=== PATIENT | female | born 1965 | race Caucasian/White ===

== ENCOUNTER 2016-03-25 13:53 | Emergency (ER) | payer OTHER, MEDICARE ==
[~2016-03-25 13:53] MED LIST: ACETAMINOPHEN500 M4 PO; AMMONIUM LACTA385 GM TOP; ARTIFICIAL TEAR1 OIN; ARTIFICIAL TEAR15 M5 OP; ATIVAN0.5 M1 PO; ATIVAN0.5 MG PO; ATORVASTATIN CA20 M1 PO; AUGMENTIN 875-1 EACH PO; AUGMENTIN 875875 MG PO; CALCIUM + D 6001 TAB PO; CALCIUM CARBON600 MG PO; CEPHALEXIN500 M3 PO; DEPAKOTE ER 25250 MG PO; DEPAKOTE ER500 M1 PO; DIVALPROEX SOD500 M2 PO; DIVALPROEX SOD500 M3 PO; DULCOLAX5 MG; FLORINEF ACETA0.1 MG; FLORINEF ACETA0.1 MG PO; FLUDROCORTISON0.1 M1 PO; FOSAMAX 70MG70 MG; FOSAMAX70 M1 PO; HYDROCORTISONE5 M1 PO; Hydrocortisone PO; KETOCONAZOLE15 GM TOP; LORAZEPAM1 M1 PO; LOVENOX 4040 MG/0.4 SC; MIRALAX17 GM PO; MUCINEX600 M1 PO; MUCINEX600 MG; PEPCID20 M1 PO; PEPCID40 MG; PERCOCET 500 MG1 TAB PO; SENOKOT8.6 M2 PO; SENOKOT8.6 MG; SINGULAIR10 M1 PO; SINGULAIR10 MG; TRIAMCINOLONE A15 G3 TOP; TYLENOL TAB 32325 MG PO; TYLENOL WITH C1 EACH PO; TYLENOL325 M1 PO; TYLENOL325 MG; ULTRAM50 M1 PO; VITAMIN D1000 IU; VITAMIN D1000 UNIT PO; ZOFRAN ODT4 M1 PO
--- NOTE | 2016-03-25 14:14 | ED NECK/BACK PAIN COMPLAINT ---
History of Present Illness General Chief Complaint: Low Back Pain/Injury Stated Complaint: BIBA FROM [facility] FOR BACK PAIN Source: patient Exam Limitations: patient nonverbal at baseline. Vital Signs & Intake/Output Vital Signs & Intake/Output Vital Signs Date Time Temp Pulse Resp B/P Pulse O2 O2 Flow FiO2 Ox Delivery Rate 03/25 1723 97.0 89 16 144/89 98 Room Air 03/25 1400 98.0 87 12 131/86 96 Room Air Allergies Coded Allergies: NO KNOWN ALLERGIES (06/28/15) Triage Nurses Notes Reviewed? yes HPI: Patient is a 50-year-old female brought in by ambulance for evaluation of increasing back pain. Patient is nonverbal at baseline, resides in an extended care facility. Per the extended care facility patient has been refusing to walk for the past 2 days, not able to sit in her wheel chair and leaning to one side or the other. Patient reportedly not willing to lay on her back. Patient is unable to describe her pain, does not nod or acknowledge questions on my exam. No reported recent trauma. (VIKKI ALCARAZ,ARIELLE) Reconcile Medications Acetaminophen (Tylenol) 325 MG TABLET 1 TAB PO Q4-6 PRN PRN PAIN SCALE 1-3 ( MILD) (Reported) Acetaminophen 650 MG SUPP.RECT 1 SUPP MI Q4 HRS NEEDED PRN FEVER > 101 ( Reported) Alendronate Sodium (Fosamax) 70 MG TABLET 1 TAB PO QSAT OSTEOPOROSIS ( Reported) in the morning, at least 30 minutes before the first food, beverage, or medication of the day Atorvastatin Calcium 20 MG TABLET 1 TAB PO QPM HIGH CHOLESTROL (Reported) Calcium Carbonate 600 MG TABLET 2 TAB PO QPM SUPPLEMENT (Reported) Cholecalciferol (Vitamin D3) (Vitamin D) 1,000 UNIT TABLET 1 TAB PO DAILY SUPPLEMENT (Reported) Divalproex Sodium (Depakote Sprinkle) 125 MG CAP.SPRINK 4 CAP PO 8AM SEIZURES (Reported) Divalproex Sodium (Depakote) 125 MG TABLET.DR 8 CAP PO 8PM SEIZURES (Reported ) Famotidine (Pepcid) 20 MG TABLET 1 TAB PO DAILY HEARTBURN (Reported) Fludrocortisone Acetate 0.1 MG TABLET 1 TAB PO EOD IDOPATHIC ORTHOSTATIC HTN (Reported) Guaifenesin (Mucinex) 600 MG TAB.ER.12H 1 TAB PO BID PRN Cough, sputum ( Reported) Hydrocodone/Acetaminophen (Hydrocodon-Acetaminophen 5-325) 5 MG-325 MG TABLET 1 TAB PO Q8P PRN PAIN SCALE 4-6 (MODERATE) (Reported) Hydrocortisone 5 MG TABLET 3 TAB PO QAM HYPOALDOSTRONISM (Reported) Reason to Stop at ADM: change to IV Hydrocortisone 5 MG TABLET 1 TAB PO QPM HYPOALDOSTRONISM (Reported) Reason to Stop at ADM: change to IV Lorazepam (Ativan) 0.5 MG TABLET 1 TAB PO QAM anxiety (Reported) Reason to Stop at ADM: respiratory distress Lorazepam (Ativan) 0.5 MG TABLET 2 TAB PO QPM anxiety (Reported) Reason to Stop at ADM: respiratory distress Montelukast Sodium (Singulair) 10 MG TABLET 1 TAB PO DAILY ASTHMA (Reported) Sennosides/Docusate Sodium (Senna S Tablet) 8.6 MG-50 MG TABLET 2 TAB PO QPM STOOL (Reported) (FABIANO MITCHELL,BARRIE) Past History Medical History Any Pertinent Medical History? 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 No (ARIELLE BELTRAN) Review of Systems Review of Systems Constitutional: Reports: malaise. Denies: chills, fever. Eyes: Reports: no symptoms. Ears, Nose, Throat, Mouth: Reports: no symptoms. Respiratory: Reports: cough. Cardiovascular: Denies: chest pain, syncope. Gastrointestinal/Abdominal: Denies: diarrhea, vomiting. Musculoskeletal: Reports: see HPI. Skin: Reports: no symptoms. Neurological/Psychological: Denies: unable to move lower ext, unable to move upper ext. (ARIELLE BELTRAN) Physical Exam Physical Exam General Appearance: alert, awake Head: atraumatic, normal appearance Eyes: Bilateral: normal appearance, PERRL, EOMI. Ears, Nose, Throat, Mouth: moist mucous membrane Neck: normal inspection, supple, full range of motion, no midline tenderness Respiratory: normal breath sounds, no respiratory distress, lungs clear Cardiovascular: regular rate/rhythm Peripheral Pulses: 2+ dorsalis pedis (R), 2+ dorsalis pedis (L) Gastrointestinal: soft, non-tender, NO PALPABLE MASSES Back: normal inspection, normal range of motion, no vertebral tenderness Straight Leg Raising: Right: Negative. Left: Negative. DTR: Patellar: 1: L4 Left. 2: L4 Right. Neurologic/Psych: awake, alert (VIKKI ALCARAZ,ARIELLE) Progress Differential Diagnosis: AAA, cauda equina syn, herniated disc, myofascial strain , pyelo/UTI, sciatica, T/L spine injury, ureterolithiasis, pneumonia, sepsis Plan of Care: Orders Procedure Date/time Status URINALYSIS 03/25 1428 Complete COMPREHENSIVE METABOLIC PANEL 03/25 1428 Complete CBC WITHOUT DIFFERENTIAL 03/25 1428 Complete Laboratory Tests 03/25/16 1455: Anion Gap 8, Estimated GFR > 60, BUN/Creatinine Ratio 23.8, Glucose 72, Calcium 8.7, Total Bilirubin 0.3, AST 20, ALT 12, Alkaline Phosphatase 62, Total Protein 6.8, Albumin 2.9 L, Globulin 3.9, Albumin/Globulin Ratio 0.7 L, CBC w Diff NO MAN DIFF REQ, RBC 3.91 L, MCV 101.7 H, MCH 34.0 H, RDW 17.4 H, MPV 8.6, Gran % 75.4 H, Lymphocytes % 13.2 L, Monocytes % 11.2 H, Eosinophils % 0, Basophils % 0.2, Absolute Granulocytes 4.9, Absolute Lymphocytes 0.9 L, Absolute Monocytes 0.7 H, Absolute Eosinophils 0, Absolute Basophils 0, PUBS MCHC 33.4, Urine Color YEL, Urine Clarity CLEAR, Urine pH 7.0, Ur Specific [place] 1.010, Urine Protein NEG, Urine Ketones NEG, Urine Nitrite NEG, Urine Bilirubin NEG, Urine Urobilinogen 0.2, Ur Leukocyte Esterase NEG, Ur Microscopic EXAM NOT REQUIRED, Urine Hemoglobin NEG, Urine Glucose NEG No signs of pain or discomfort with straight leg raise, palpation of patient's back, or rolling patient. Results discussed with patient's power of defense attorney. She reports that patient has been in significant pain and requesting a change in the patient's pain medication regimen. 1700: Discussed with Dr. Perla(covering patient at [facility]): can place patient on Vicodin and discharge back to [facility]. (ARIELLE BELTRAN) Diagnostic Imaging: Viewed by Me: Radiology Read, CT Scan. Discussed w/RAD: Radiology Read, CT Scan. Radiology Impression: PATIENT: MADDIE JANSEN PRESENT AGE: 50 PATIENT ACCOUNT NO: [id number] : 63 LOCATION: [facility] ORDERING PHYSICIAN: ARIELLE ALCARAZ SERVICE DATE: 03/25/16 EXAM TYPE: RAD - XRY-PORTABLE CHEST XRAY EXAMINATION: XR PORTABLE CHEST CLINICAL INFORMATION: Productive cough. COMPARISON: Portable chest x-ray 09/20/2015. TECHNIQUE: Portable view of the chest was obtained. FINDINGS: There is fairly diffuse increase in interstitial markings which is increased left side greater than right compared with the previous examination and may represent an evolving atypical or viral type pneumonia. No areas of focal consolidation are seen. Cardiomediastinal silhouette and osseous structures unremarkable. IMPRESSION: Mild diffuse interstitial prominence. DICTATED BY: ANA ROSA BAIRD MD DATE/TIME DICTATED:03/25/161549 LEAD MILITARY ANALYST:ANAHI DATE/TIME TRANSCRIBED:1549 CONFIDENTIAL, DO NOT COPY WITHOUT APPROPRIATE AUTHORIZATION. < Electronically signed in Other Vendor System> SIGNED BY: ANA ROSA BAIRD MD 03/25/161555 (ARIELLE BELTRAN) Departure Departure Disposition: ACUTE REHAB FACILITY Condition: Stable Clinical Impression Primary Impression: Protruded lumbar disc Referrals: PAU MITCHELL,MAXIMILIAN Olsen (PCP/Family) Departure Forms: Customer Survey General Discharge Information (ARIELLE BELTRAN) PA/TRAINING CONSULTANT Co-Sign Statement Statement: ED Attending supervision documentation- [] I saw and evaluated the patient. I have also reviewed all the pertinent lab results and diagnostic results. I agree with the findings and the plan of care as documented in the PA's/TRAINING CONSULTANT's documentation. [X] I have reviewed the ED Record and agree with the PA's/TRAINING CONSULTANT's documentation. [] Additions or exceptions (if any) to the PAs/TRAINING CONSULTANT's note and plan are summarized below: [] (FABIANO MITCHELL,BARRIE)
[2016-03-25] MEDS ORDERED: DEPAKOTE SPRIN125 M1 PO (14:59)
[2016-03-25] MEDS ORDERED: DEPAKOTE125 M1 PO (14:59)
[2016-03-25] MEDS ORDERED: SENNA S TABLET1 EACH PO (15:01)
[2016-03-25 15:19] LABS: ABSOLUTE BASOPHIL COUNT 0 /CUMM (0.0-0.2); ABSOLUTE EOSINOPHIL COUNT 0 /CUMM (0.0-0.7); ABSOLUTE GRANULOCYTE CT 4.9 /CUMM (1.4-6.5); ABSOLUTE LYMPH COUNT 0.9 /CUMM (1.2-3.4); ABSOLUTE MONOCYTE COUNT 0.7 /CUMM (0.10-0.60); BASOPHIL % 0.2 % (0.0-2.0); EOSINOPHIL % 0 % (0-5); GRANULOCYTE % 75.4 % (42.2-75.2); HEMATOCRIT 39.8 % (37-47); MEAN CORPUSCULAR HGB CONC 33.4 G/DL (33.0-37.0); MEAN CORPUSCULAR VOLUME 101.7 FL (81.0-99.0); MEAN PLATELET VOLUME 8.6 FL (7.4-10.4); PLATELET COUNT 248 /CUMM (130-400); RBC DISTRIBUTION WIDTH 17.4 % (11.5-14.5); RED BLOOD CELL CT 3.91 /CUMM (4.20-5.40); WHITE BLOOD CELL COUNT 6.6 /CUMM (4.8-10.8)
--- NOTE | 2016-03-25 15:56 | RADIOLOGY REPORT ---
EXAMINATION: XR PORTABLE CHEST CLINICAL INFORMATION: Productive cough. COMPARISON: Portable chest x-ray 09/20/2015. TECHNIQUE: Portable view of the chest was obtained. FINDINGS: There is fairly diffuse increase in interstitial markings which is increased left side greater than right compared with the previous examination and may represent an evolving atypical or viral type pneumonia. No areas of focal consolidation are seen. Cardiomediastinal silhouette and osseous structures unremarkable. IMPRESSION: Mild diffuse interstitial prominence.
--- NOTE | 2016-03-25 16:50 | CT SCAN REPORT ---
EXAMINATION: CT LUMBAR SPINE WITHOUT CONTRAST CLINICAL INFORMATION: Severe low back pain. Assess for compression fracture. COMPARISON: CT scan 12/04/2015. TECHNIQUE: Helical non-contrast CT images were obtained through the lumbar spine and 1.25 and 2.5 mm axial reconstructions were reviewed along with sagittal and coronal MPRs. DLP: 225.18 mGy-cm FINDINGS: There is a stable rotatory levoscoliosis. Intervertebral disc height is narrowed in the concavity of the scoliosis at L2-L3 with lateral osteophytes. Vertebral body heights are maintained and there are no compression fractures. Bone mineralization appears normal. The visualized retroperitoneal and pelvic structures are unremarkable. There are degenerative changes of the sacroiliac joints most severe on the right. SPINAL LEVELS: T12-L1: The disc configuration is normal. The central canal and neural foramina are widely patent. The facet joints are normal. L1-L2: There is callus from the healing fracture of the right L2 transverse process. There is mild bilateral facet arthropathy. Posterior disc contour appears normal. There is no central stenosis. L2-L3: There is mild bilateral facet arthropathy. There is a broad-based posterior disc protrusion, which is more prominent on the left and extends far laterally with impingement on the exiting left L2 nerve root. A smaller protrusion is seen on the right. There is no central stenosis. The findings appear stable. L3-L4: There is mild bilateral facet arthropathy and ligamenta flava hypertrophy. There is a diffuse disc bulge extending into the inferior neural foramina bilaterally. This is more prominent on the left, and has a similar configuration compared to the prior study and there may be impingement on the exiting left L3 nerve root. There is no central stenosis. L4-L5: There is moderate bilateral facet arthropathy with ligamenta flava hypertrophy. There is a broad-based posterior disc protrusion extending into the right greater than left neural foramina, with impingement on the exiting right L4 nerve root. There is no central stenosis. L5-S1: There is moderate bilateral facet arthropathy. There is a broad-based posterior disc protrusion, extending into the inferior neural foramina. There is no central stenosis. IMPRESSION: 1. There are no acute compression fractures or new subluxations. 2. The study redemonstrates the callus formation around the healing fracture of the transverse process of L2 on the right. 3. There is a stable far lateral disc protrusion on the left at L2-L3, impinging on the extraforaminal left L2 nerve root. 4. There is a broad-based posterior disc protrusion at L3-L4, more prominent on the left. 5. There is a broad-based posterior disc protrusion at L4-L5 extending into the neural foramina bilaterally, more prominent on the right.
[2016-03-25 17:23] VITALS: BP 144/89
== END 2016-03-25 18:33 ==
LOC: ERH 13:53
PROVIDERS: Physician Assistant
DX: M51.26 Other intervertebral disc displacement, lumbar region (principal)
CPT/HCPCS: 81003

== ENCOUNTER 2016-03-28 08:58 | Inpatient (IN) | payer OTHER, MEDICARE ==
[~2016-03-28] VITALS: Ht 137.2 cm; Wt 46.7 kg
[~2016-03-28 08:58] MED LIST changes: +DEPAKOTE SPRIN125 M1 PO; +DEPAKOTE125 M1 PO; +SENNA S TABLET1 EACH PO
--- NOTE | 2016-03-28 09:02 | ED GENERAL ADULT ---
History of Present Illness General Chief Complaint: Fever Stated Complaint: FEVER AND LETHARGY Vital Signs & Intake/Output Vital Signs & Intake/Output Vital Signs Date Time Temp Pulse Resp B/P Pulse O2 O2 Flow FiO2 Ox Delivery Rate 03/28 0901 99.0 111 20 80/50 95 Nasal 2.0L Cannula Allergies Coded Allergies: NO KNOWN ALLERGIES (06/28/15) Reconcile Medications Acetaminophen (Tylenol) 325 MG TABLET 1 TAB PO Q4-6 PRN PRN PAIN SCALE 1-3 ( MILD) (Reported) Alendronate Sodium (Fosamax) 70 MG TABLET 1 TAB PO QSAT OSTEOPOROSIS ( Reported) in the morning, at least 30 minutes before the first food, beverage, or medication of the day Atorvastatin Calcium 20 MG TABLET 1 TAB PO QPM HIGH CHOLESTROL (Reported) Calcium Carbonate 600 MG TABLET 2 TAB PO QPM SUPPLEMENT (Reported) Cholecalciferol (Vitamin D3) (Vitamin D) 1,000 UNIT TABLET 1 TAB PO DAILY SUPPLEMENT (Reported) Divalproex Sodium (Depakote Sprinkle) 125 MG CAP.SPRINK 4 CAP PO DAILY SEIZURES (Reported) Divalproex Sodium (Depakote) 125 MG TABLET.DR 8 CAP PO QPM SEIZURES (Reported ) Famotidine (Pepcid) 20 MG TABLET 1 TAB PO DAILY HEARTBURN (Reported) Fludrocortisone Acetate 0.1 MG TABLET 1 TAB PO EOD IDOPATHIC ORTHOSTATIC HTN (Reported) Guaifenesin (Mucinex) 600 MG TAB.ER.12H 1 TAB PO BID PRN CONGESTION (Reported ) Hydrocortisone 5 MG TABLET 3 TAB PO QAM HYPOALDOSTRONISM (Reported) Hydrocortisone 5 MG TABLET 1 TAB PO QPM HYPOALDOSTRONISM (Reported) Lorazepam (Ativan) 0.5 MG TABLET 1 TAB PO QAM anxiety (Reported) Lorazepam (Ativan) 0.5 MG TABLET 2 TAB PO QPM anxiety (Reported) Montelukast Sodium (Singulair) 10 MG TABLET 1 TAB PO DAILY ASTHMA (Reported) Sennosides (Senokot) 8.6 MG TABLET 1 TAB PO DAILY STOOL SOFTENER (Reported) Sennosides/Docusate Sodium (Senna S Tablet) 8.6 MG-50 MG TABLET 2 TAB PO QPM STOOL (Reported) Tramadol HCl (Ultram) 50 MG TABLET 1 TAB PO BID PRN PAIN (Reported) Tylenol With Codeine (Tylenol With Codeine #3 Tablet) 300 MG-30 MG TABLET 1 TAB PO Q6-8P PRN PAIN SCALE 4-6 (MODERATE) (Reported) Past History Travel History Traveled to [place] past 21 day No Medical History Neurological: THEE EVANS EENT: cataracts, NON-VERBAL AT BASELINE Y Cardiovascular: MITRAL VALVE PROLAPSE HYPOTENSION Respiratory: NONE Gastrointestinal: NO TEETH Hepatic: NONE Renal: urinary incontinence Musculoskeletal: osteoarthritis, osteoporosis, ?L1-L5 INJURY Psychiatric: NONE Endocrine: NONE Blood Disorders: anemia Cancer(s): NONE 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
--- NOTE | 2016-03-28 09:05 | ED DYSPNEA/ASTHMA COMPLAINT ---
History of Present Illness General Chief Complaint: Fever Stated Complaint: FEVER AND LETHARGY Source: old records, EMS Exam Limitations: physical impairment Allergies Coded Allergies: NO KNOWN ALLERGIES (06/28/15) Reconcile Medications Acetaminophen (Tylenol) 325 MG TABLET 1 TAB PO Q4-6 PRN PRN PAIN SCALE 1-3 ( MILD) (Reported) Acetaminophen 650 MG SUPP.RECT 1 SUPP NE Q4 HRS NEEDED PRN FEVER > 101 ( Reported) Alendronate Sodium (Fosamax) 70 MG TABLET 1 TAB PO QSAT OSTEOPOROSIS ( Reported) in the morning, at least 30 minutes before the first food, beverage, or medication of the day Atorvastatin Calcium 20 MG TABLET 1 TAB PO QPM HIGH CHOLESTROL (Reported) Calcium Carbonate 600 MG TABLET 2 TAB PO QPM SUPPLEMENT (Reported) Cholecalciferol (Vitamin D3) (Vitamin D) 1,000 UNIT TABLET 1 TAB PO DAILY SUPPLEMENT (Reported) Divalproex Sodium (Depakote Sprinkle) 125 MG CAP.SPRINK 4 CAP PO DAILY SEIZURES (Reported) Divalproex Sodium (Depakote) 125 MG TABLET.DR 8 CAP PO QPM SEIZURES (Reported ) Famotidine (Pepcid) 20 MG TABLET 1 TAB PO DAILY HEARTBURN (Reported) Fludrocortisone Acetate 0.1 MG TABLET 1 TAB PO EOD IDOPATHIC ORTHOSTATIC HTN (Reported) Guaifenesin (Mucinex) 600 MG TAB.ER.12H 1 TAB PO BID PRN CONGESTION (Reported ) Hydrocodone/Acetaminophen (Hydrocodon-Acetaminophen 5-325) 5 MG-325 MG TABLET 1 TAB PO Q8P PRN PAIN (Reported) Hydrocortisone 5 MG TABLET 3 TAB PO QAM HYPOALDOSTRONISM (Reported) Hydrocortisone 5 MG TABLET 1 TAB PO QPM HYPOALDOSTRONISM (Reported) Lorazepam (Ativan) 0.5 MG TABLET 1 TAB PO QAM anxiety (Reported) Lorazepam (Ativan) 0.5 MG TABLET 2 TAB PO QPM anxiety (Reported) Montelukast Sodium (Singulair) 10 MG TABLET 1 TAB PO DAILY ASTHMA (Reported) Sennosides/Docusate Sodium (Senna S Tablet) 8.6 MG-50 MG TABLET 2 TAB PO QPM STOOL (Reported) Triage Nurses Notes Reviewed? yes Onset: Gradual Duration: getting worse Timing: recent history Severity: severe Activities at Onset: none HPI: Patient is a 50-year-old female with past medical history significant for Down syndrome, seizure disorder, severe developmental disability, impulse control disorder, adrenal insufficiency, hyponatremia hypoaldosteronism, and chronic back pain due to severe spinal stenosis who was recently admitted approximately 5 weeks ago for metabolic encephalopathy with underlying UTI infection who presents emergency room brought in from [facility] for concerns of hypoxia, pulse oxygen was noted to be 88% room air patient was given 2 L noted to have improvement of 92%. Patient has concerns of febrile temperature noted 103 this a.m. increased lethargy however nonverbal his chronic. Patient has decreased by mouth intake dictated by W 10. Patient has green phlegm noted by staff at [facility]. Patient was evaluated 4 days ago [place] emergency room for concerns of chronic back pain which she was administered Vicodin for symptoms. Tylenol suppository was administered 650 mg prior to arrival with no improvement of fever History is limited due to patient's past medical history. (ANTHONY ALCARAZ,VIKAS) Vital Signs & Intake/Output Vital Signs & Intake/Output Vital Signs Date Time Temp Pulse Resp B/P Pulse O2 O2 Flow FiO2 Ox Delivery Rate 03/28 1415 86 18 92/50 92 Nasal 2.0L Cannula 03/28 1309 97.7 84 20 90/50 98 Nasal 2.0L Cannula 03/28 1211 97.9 95 20 92/55 92 Nasal 2.0L Cannula 03/28 1114 102 20 92/58 98 Nasal 2.0L Cannula 03/28 1034 100.6 100 20 80/50 96 Nasal 2.0L Cannula 03/28 1020 102 20 83/46 98 Nasal 2.0L Cannula 03/28 1000 98 Nasal 2.0L Cannula 03/28 0948 105 20 85/60 98 Nasal 2.0L Cannula 03/28 0930 103.4 03/28 0901 103.4 111 20 80/50 95 Nasal 2.0L Cannula Past History Travel History Traveled to [place] past 21 day No Medical History Any Pertinent Medical History? 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: MITRAL VALVE PROLAPSE HYPOTENSION Respiratory: NONE Gastrointestinal: NO TEETH Hepatic: NONE Renal: urinary incontinence Musculoskeletal: osteoarthritis, osteoporosis, ?L1-L5 INJURY Psychiatric: NONE Endocrine: NONE Blood Disorders: anemia Cancer(s): NONE ANIMAL SKINNER/Reproductive: NONE History of MRSA: No History of VRE: No History of CDIFF: No Surgical History Surgical History: non-contributory Psychosocial History Who do you live with Family Services at Home Home Health Aide What is your primary language Qatari Tobacco Use: Never used ETOH Use: denies use Illicit Drug Use: denies illicit drug use Family History Family History, If Any: Relation not specified for: Family history unobtainable Hx Contributory? No (VIAKS PANIAGUA) Review of Systems Review of Systems Constitutional: Reports: see HPI, chills, fever, malaise. EENTM: Reports: see HPI, nasal congestion. Respiratory: Reports: see HPI, cough, short of breath. Cardiovascular: Reports: no symptoms. GI: Reports: no symptoms. Genitourinary: Reports: no symptoms. Musculoskeletal: Reports: see HPI. Skin: Reports: no symptoms. Neurological/Psychological: Reports: no symptoms. Hematologic/Endocrine: Reports: no symptoms. Immunologic/Allergic: Reports: no symptoms. All Other Systems: Reviewed and Negative (VIKAS PANIAGUA) Physical Exam Physical Exam General Appearance: no apparent distress, comfortable Respiratory: chest non-tender, rhonchi, nO RESPIRATORY DISTRESS Comments: HEENT: Normal EENT exam, extraocular motion intact, no nystagmus. Pupils equally round and reactive to light and accommodation. Nose is atraumatic. External auditory canal and Tympanic membranes clear. Pharynx normal. No swelling or edema. Neck: Supple, no lymphadenopathy, normal range of motion without pain or tenderness Back: , no CVA tenderness. Cardiovascular: Regular rate and rhythms no murmurs rubs or gallops, normal JVP Abdomen: Soft, nontender nondistended, no appreciable organomegaly. Normal bowel sounds. No ascites Extremity: No edema, no calf tenderness to palpation, normal and equal pulses. Neuro: Alert, motor sensory normal, Skin: No appreciable rash on exposed skin, skin is warm and dry. Psych: Mood and affect is normal, memory and judgment is normal. Core Measures ACS in differential dx? Yes Severe Sepsis Present: Yes BC x2: Yes Lactic Acid x2: Yes IV ABX Broad Spectrum: Yes NS/LR Started: Yes Septic Shock Present: Yes BC x2: Yes Lactic Acid: Yes IV ABX Broad Spectrum: Yes Focused Exam Completed: Yes NS/LR 30ml/kg w/in 3hrs: Yes IV Vasopressors started: No (VIKAS PANIAGUA) Progress Differential Diagnosis: asthma, AMI, bronchitis, costochondritis, CHF, COPD, musculoskeletal pain, pericarditis, pulmonary embolism, pneumonia, pneumothorax, rib fracture, unstable angina Diagnostic Imaging: Viewed by Me: Radiology Read. Radiology Impression: acute abnormality Initial ED EKG: normal intervals, normal p-waves, normal sinus rhythm, SINUS RHYTHM NOTED 100 BPM Prior EKG: unchanged Comments: PATIENT: MADDIE JANSEN PRESENT AGE: 50 PATIENT ACCOUNT NO: [id number] : 63 LOCATION: [facility] ORDERING PHYSICIAN: VIKAS ALCARAZ SERVICE DATE: 03/28/16 EXAM TYPE: RAD - XRY-PORTABLE CHEST XRAY EXAMINATION: XR PORTABLE CHEST CLINICAL INFORMATION: Fever, evaluate for pneumonia. COMPARISON: 07/05/2013, 03/25/2016. TECHNIQUE: Single AP erect 80 degree portable view. FINDINGS: There is a developing patchy opacity obscuring the right heart border in the right costophrenic angle concerning for developing infiltrate versus atelectasis. Patchy opacity overlying the heart also appears slightly more prominent. Interstitial prominence appears unchanged. There are old healed right-sided rib fractures. Cardiomediastinal silhouette appears unchanged. IMPRESSION: Findings suggesting developing lower lobe infiltrate most convincing on the right. Continued follow-up is recommended. (ANTHONY ALCARAZ,VIKAS) Plan of Care: Orders Procedure Date/time Status CBC WITHOUT DIFFERENTIAL 03/29 06 Active BASIC ELECTROLYTES PLUS BUN&CR 03/29 06 Active Heart Healthy Diet 03/28 D Active Change service to 03/28 1434 Active Pathway - chart 03/28 1433 Active Patient Data 03/28 1355 Active Admit to inpatient 03/28 1335 Active Code Status 03/28 1330 Active Pathway - chart 03/28 1326 Active House Staff 03/28 1326 Active LOWER RESPIRATORY CULTURE 03/28 0933 Active VIRAL CULTURE 03/28 929 Active Straight Cath 03/28 927 Active RAPID VIRAL INFLUENZA A 03/28 926 Complete CULTURE,URINE 03/28 926 Active BLOOD CULTURE 03/28 926 Active URINALYSIS 03/28 926 Complete TROPONIN LEVEL 03/28 926 Complete LACTIC ACID 03/28 926 Complete COMPREHENSIVE METABOLIC PANEL 03/28 926 Complete CBC WITHOUT DIFFERENTIAL 03/28 926 Complete EKG 03/28 926 Active VTE Mechanical Prophylaxis 03/28 UNK Active Vital Signs 03/28 UNK Active Intake & Output 03/28 UNK Active Current Medications Sig/Keerthi Start time Last Medication Dose Stop Time Status Admin Oseltamivir Phosphate 75 MG BID 03/28 1515 AC (Tamiflu 75MG) 04/01 2201 Acetaminophen 650 MG Q6P PRN 03/28 1445 AC (Tylenol) Azithromycin 500 MG ONCE ONE 03/28 929 CAN (Zithromax) 03/28 1029 Dextrose/Water 250 ML (D5W) Ceftriaxone Sodium 1,000 MG ONCE ONE 03/28 929 CAN (Rocephin) 03/28 0931 Laboratory Tests 03/28/16 1227: Lactic Acid Cancelled 03/28/16929: Anion Gap 6, Estimated GFR > 60, BUN/Creatinine Ratio 26.7 H, Glucose 68, Lactic Acid 1.3, Calcium 7.3 L, Total Bilirubin 0.4, AST 24, ALT 24, Alkaline Phosphatase 43, Troponin I < 0.01, Total Protein 5.5 L, Albumin 2.3 L, Globulin 3.2, Albumin/Globulin Ratio 0.7 L, CBC w Diff NO MAN DIFF REQ, RBC 3.65 L, MCV 102.7 H, MCH 34.1 H, RDW 18.0 H, MPV 9.5, Gran % 68.7, Lymphocytes % 17.6 L, Monocytes % 13.2 H, Eosinophils % 0.1, Basophils % 0.4, Absolute Granulocytes 3.0, Absolute Lymphocytes 0.8 L, Absolute Monocytes 0.6, Absolute Eosinophils 0, Absolute Basophils 0, PUBS MCHC 33.2, Virus Culture Pending, Urinalysis MOD H, Urine Color YEL, Urine Clarity HAZY H, Urine pH 6.0 , Ur Specific [place] 1.025, Urine Protein >=300 H, Urine Ketones TRACE H, Urine Nitrite POS H, Urine Bilirubin NEG, Urine Urobilinogen 0.2, Ur Leukocyte Esterase MOD H, Ur Microscopic SEDIMENT EXAMINED, Urine RBC 15-25 H, Urine WBC PACKD H, Ur Epithelial Cells RARE, Urine Mucus FEW, Urine Hemoglobin LARGE H, Urine Glucose NEG Microbiology 03/28 939 BLOOD: Blood Culture - RECD 03/28 932 LOWER RESP: Respiratory Culture - ORD 03/28 932 LOWER RESP: Gram Stain - ORD 03/28 929 BLOOD: Blood Culture - RECD 03/28 926 URINE ROUT: Urine Culture - ORD Patient on an episode exam due to significant fevers and rhonchi and hypotension will be treated for concerns of septic shock. 2 IV peripheral access points were administered in which patient is receiving IV fluid resuscitation. Patient will be given prophylactic antibiotics for concerns of pneumonia Patient had chest x-ray findings of pneumonia patient will be treated for hospital acquired pneumonia and patient had positive influenza and patient will be put on droplet precautions. Patient did have improvement of hypotension prior to her admission Patient was given 3 L of supplemental oxygen and noted to be in no respirator distress at 95% room air Patient had no concerns of pressure ulcer on detailed skin exam Patient had improvement of blood pressure with IV fluid resuscitation patient will be admitted under hospitalist and which they accepted patient. (VIKAS PANIAGUA) Departure Departure Disposition: STILL A PATIENT Condition: Stable Clinical Impression Primary Impression: Sepsis Secondary Impressions: Hypoxia, Influenza, Pneumonia Referrals: PAU MITCHELL,MAXIMILIAN Olsen Departure Forms: Customer Survey General Discharge Information Admission Note Spoke With: YOLANDA MITCHELL,CHARLENE Marroquin Documentation of Exam: Documentation of any treatments & extenuating circumstances including Concerns Regarding Discharge (functional status, medication knowledge or non-compliance, living conditions, etc.) that warrant an admission rather than observation: [ Discussed patient with Dr. GORMAN who agrees to [facility] admission for concerns of sepsis and etiology of pneumonia. Patient was IV fluid resuscitation, IV antibiotics, and droplet precautions. Outpatient treatment at this time due to critical findings of septic shock initially in the emergency room would be medically harmful] (VIKAS PANIAGUA) PA/[employer]PM DEVELOPER Co-Sign Statement Statement: ED Attending supervision documentation- [X] I saw and evaluated the patient. I have also reviewed all the pertinent lab results and diagnostic results. I agree with the findings and the plan of care as documented in the PA's/[employer] DEVELOPER's documentation. [] I have reviewed the ED Record and agree with the PA's/[employer] DEVELOPER's documentation. [] Additions or exceptions (if any) to the PAs/[employer] DEVELOPER's note and plan are summarized below: [] (BRYN MITCHELL,HAILEY Posey) Critical Care Note Critical Care Note Critical Care Time: 30-74 min (VIKAS PANIAGUA)
--- NOTE | 2016-03-28 09:15 | NUR ---
STRAIGHT CATHED FOR ONLY 20ML CLOUDY YELLOW URINE, ONLY CLEAR TUBE OBTAINED.
--- NOTE | 2016-03-28 09:27 | NUR ---
PT BIBA FROM [facility] FOR LOW O2 SAT, FEVER, AND LETHARGY. PER EMS PT HAD A TEMP OF 103.4 AT [facility] AT 730 A AND WAS GIVEN SUPP TYELNOL. PT SEEN IN ER MONDAY FOR BACK PAIN AND CT SCAN. PT PLACED ON VICODIN AND SENT BACK TO FACILITY. TODAY PT ARRIVES IN ED LETHARGIC AND WITH A RECTAL TEMP OF 103.4. PT HYPOTENSIVE ON ARRRIVAL WITH BP IN THE 80S. PT O2 SAT 90% ON RA. PT HAS AN AUDIBLE COUGH AND BRINGS UP GREEN PHLEGM FROM MOUTH. PER EMS FACILTY ALSO STATES PT IS NOT EATING WELL PT PLACED ON 2L OF O2 VIA NC WITH SAT IMPROVING TO 97%
--- NOTE | 2016-03-28 09:30 | NUR ---
LABS, URINE, 1ST SET BC SENT.
--- NOTE | 2016-03-28 09:30 | NUR ---
FLU SWAB SENT.
--- NOTE | 2016-03-28 09:45 | NUR ---
PORT CXR DONE.
[2016-03-28] MEDS ORDERED: ACETAMINOPHEN650 M5 PR (09:48)
[2016-03-28] MEDS ORDERED: HYDROCODON-ACE1 EAC2 PO (09:52)
[2016-03-28 10:02] LABS: ABSOLUTE BASOPHIL COUNT 0 /CUMM (0.0-0.2); ABSOLUTE EOSINOPHIL COUNT 0 /CUMM (0.0-0.7); ABSOLUTE LYMPH COUNT 0.8 /CUMM (1.2-3.4); ABSOLUTE MONOCYTE COUNT 0.6 /CUMM (0.10-0.60); BASOPHIL % 0.4 % (0.0-2.0); EOSINOPHIL % 0.1 % (0-5); GRANULOCYTE % 68.7 % (42.2-75.2); HEMATOCRIT 37.5 % (37-47); MEAN CORPUSCULAR HGB 34.1 PG (27.0-31.0); MEAN CORPUSCULAR HGB CONC 33.2 G/DL (33.0-37.0); MEAN CORPUSCULAR VOLUME 102.7 FL (81.0-99.0); MEAN PLATELET VOLUME 9.5 FL (7.4-10.4); PLATELET COUNT 213 /CUMM (130-400); RED BLOOD CELL CT 3.65 /CUMM (4.20-5.40); WHITE BLOOD CELL COUNT 4.3 /CUMM (4.8-10.8)
--- NOTE | 2016-03-28 10:06 | NUR ---
CRITICAL TEST RESULTS [id number] MADDIE JANSEN 50 F TESTS AND RESULTS: + INFULENZA A Results received and read back by: PARVIZ CASH Results received date and time: 03/28/16 1007 The following provider was notified of the results, and read the results back: LISSA CRUZ Notified date and time: 03/28/16 at 1007
--- NOTE | 2016-03-28 10:07 | RADIOLOGY REPORT ---
EXAMINATION: XR PORTABLE CHEST CLINICAL INFORMATION: Fever, evaluate for pneumonia. COMPARISON: 07/05/2013, 03/25/2016. TECHNIQUE: Single AP erect 80 degree portable view. FINDINGS: There is a developing patchy opacity obscuring the right heart border in the right costophrenic angle concerning for developing infiltrate versus atelectasis. Patchy opacity overlying the heart also appears slightly more prominent. Interstitial prominence appears unchanged. There are old healed right-sided rib fractures. Cardiomediastinal silhouette appears unchanged. IMPRESSION: Findings suggesting developing lower lobe infiltrate most convincing on the right. Continued follow-up is recommended.
--- NOTE | 2016-03-28 11:00 | NUR ---
SPOKE WITH PT'S POTomas APPIAH, CAN BE REACHED AT [phone]. WOULD LIKE UPDATES.
--- NOTE | 2016-03-28 12:00 | NUR ---
AWAITING DISPO Informed waiting has been performed.
--- NOTE | 2016-03-28 12:58 | NUR ---
COPY OF LAB STATING PT IS + FOR FLU WAS FAXED TO [facility] PER REQUEST OF MARIA DE JESUS AT [facility].
--- NOTE | 2016-03-28 13:09 | NUR ---
ORDERED PUREE LUNCH TRAY
--- NOTE | 2016-03-28 13:39 | History & Physical ---
DARRON TSANG MD 03/28/16 7549: General Information and HPI MD Statement: I have seen and personally examined MADDIE JANSEN and documented this H&P. The patient is a 50 year old F brought in by ambulance from [facility] for evaluation of fever, cough and green sputum production. Source of Information: old records, EMS, W10 Exam Limitations: no limitations History of Present Illness: 50-year-old woman with past medical history significant for Down syndrome, mental retardation, nonverbal at baseline, and adrenal insufficiency brought in by ambulance from [facility] for evaluation of cough, low-grade fever, and green frothy sputum. Patient is nonverbal at baseline secondary to her medical conditions. Collateral information obtained from [facility] nursing staff revealed that symptoms of fever and cough started this past Monday with production of green sputum starting this morning. Patient was seen in the ER last week for complaints of back pain where a chest radiograph was taken and demonstrated mild diffuse interstitial prominence. Review of systems is unobtainable. PMHx: Downs Syndrome, Mental Retardation, Nonverbal at baseline, Adrenal Insufficiency, Cataracts, Mitral Valve Prolapse, Osteoarthritis, Osteoporosis, Anemia Allergies/Medications Allergies: Coded Allergies: NO KNOWN ALLERGIES (06/28/15) Past History Travel History Traveled to [facility] past 21 day No Medical History Neurological: THEE EVANS EENT: cataracts, NON-VERBAL AT BASELINE Y Cardiovascular: MITRAL VALVE PROLAPSE HYPOTENSION Respiratory: NONE Gastrointestinal: NO TEETH Hepatic: NONE Renal: urinary incontinence Musculoskeletal: osteoarthritis, osteoporosis, ?L1-L5 INJURY Psychiatric: NONE Endocrine: NONE Blood Disorders: anemia Cancer(s): NONE QUALITY PROCESS LEAD/Reproductive: NONE History of MRSA: No History of VRE: No History of CDIFF: No Surgical History Surgical History: non-contributory Past Family/Social History Family History Relations & Conditions if any Relation not specified for: Family history unobtainable Psychosocial History Services at Home: Home Health Aide ETOH Use: denies use Illicit Drug Use: denies illicit drug use Review of Systems Review of Systems Constitutional: Reports: see HPI. Exam & Diagnostic Data Last 24 Hrs of Vital Signs/I&O Vital Signs Date Time Temp Pulse Resp B/P Pulse O2 O2 Flow FiO2 Ox Delivery Rate 03/28 1415 86 18 92/50 92 Nasal 2.0L Cannula 03/28 1309 97.7 84 20 90/50 98 Nasal 2.0L Cannula 03/28 1211 97.9 95 20 92/55 92 Nasal 2.0L Cannula 03/28 1114 102 20 92/58 98 Nasal 2.0L Cannula 03/28 1034 100.6 100 20 80/50 96 Nasal 2.0L Cannula 03/28 1020 102 20 83/46 98 Nasal 2.0L Cannula 03/28 1000 98 Nasal 2.0L Cannula 03/28 0948 105 20 85/60 98 Nasal 2.0L Cannula 03/28 0930 103.4 03/28 0901 103.4 111 20 80/50 95 Nasal 2.0L Cannula Intake & Output 03/28 1600 03/28 0800 03/28 0000 Intake Total 3250 Output Total 20 Balance 3230 Intake, IV 3250 Output, Urine 20 Physical Exam General Appearance No Acute Distress Skin No Rashes, No Breakdown, No Significant Lesion HEENT Atraumatic, PERRLA, EOMI, Dry mucous membranes Neck Supple Cardiovascular Regular Rate, Normal S1, Normal S2, No Murmurs Lungs Normal Air Movement, mild rhonchi Abdomen Normal Bowel Sounds, Soft, No Tenderness, No Hepatospenomegaly, No Masses Neurological Nonverbal Extremities No Clubbing, No Cyanosis, No Edema, Normal Pulses, No Tenderness/ Swelling Vascular Normal Pulses, Pulses Symmetrical Last 24 Hrs of Labs/Franco: Laboratory Tests 03/28/16 1227: Lactic Acid Cancelled 03/28/16 0930: Anion Gap 6, Estimated GFR > 60, BUN/Creatinine Ratio 26.7 H, Glucose 68, Lactic Acid 1.3, Calcium 7.3 L, Total Bilirubin 0.4, AST 24, ALT 24, Alkaline Phosphatase 43, Troponin I < 0.01, Total Protein 5.5 L, Albumin 2.3 L, Globulin 3.2, Albumin/Globulin Ratio 0.7 L, CBC w Diff NO MAN DIFF REQ, RBC 3.65 L, MCV 102.7 H, MCH 34.1 H, RDW 18.0 H, MPV 9.5, Gran % 68.7, Lymphocytes % 17.6 L, Monocytes % 13.2 H, Eosinophils % 0.1, Basophils % 0.4, Absolute Granulocytes 3.0, Absolute Lymphocytes 0.8 L, Absolute Monocytes 0.6, Absolute Eosinophils 0, Absolute Basophils 0, PUBS MCHC 33.2, Virus Culture Pending, Urinalysis MOD H, Urine Color YEL, Urine Clarity HAZY H, Urine pH 6.0 , Ur Specific [place] 1.025, Urine Protein >=300 H, Urine Ketones TRACE H, Urine Nitrite POS H, Urine Bilirubin NEG, Urine Urobilinogen 0.2, Ur Leukocyte Esterase MOD H, Ur Microscopic SEDIMENT EXAMINED, Urine RBC 15-25 H, Urine WBC PACKD H, Ur Epithelial Cells RARE, Urine Mucus FEW, Urine Hemoglobin LARGE H, Urine Glucose NEG Microbiology 03/28 939 BLOOD: Blood Culture - RECD 03/28 932 LOWER RESP: Respiratory Culture - ORD 03/28 932 LOWER RESP: Gram Stain - ORD 03/28 929 BLOOD: Blood Culture - RECD 03/28 926 URINE ROUT: Urine Culture - ORD Diagnostic Data CXR Results HR 100 [place] 120 QTc 417 Q-waves in inferior leads present on previous EKG No ST Segment changes Other Results SERVICE DATE: 03/28/16 EXAM TYPE: RAD - XRY-PORTABLE CHEST XRAY IMPRESSION: Findings suggesting developing lower lobe infiltrate most convincing on the right. Continued follow-up is recommended. Assessment/Plan Assessment: 50-year-old woman with multiple medical problems significant for Down syndrome, mental retardation, and adrenal insufficiency seen for evaluation from her ECF for cough, fever, green sputum production. Patient was febrile to 103.4, tachycardic, and hypotensive in the ER. Blood cultures were obtained and patient was given 3.0 L normal saline fluid resuscitation, started on intravenous antibiotics, and given stress dose steroids. Rapid flu screening was positive for influenza A. Patient is to be admitted to the general medicine floor for further evaluation and care. Influenza A: Patient recently seen in the [place] ED on 03/25/16 for evaluation of back pain where a chest x-ray obtained demonstrated mild diffuse interstitial prominence. Collateral information obtained from the [facility] staff determined that patient's symptoms of fever and cough have been present since that same day. Patient appeared ill this morning with new green frothy sputum for which she was brought in by ambulance for evaluation. and rapid flu test is positive for influenza A. -Acetaminophen 650 mg by mouth every 6 hours as needed for fever or pain 1-3 -Zofran 4 mg IV every 6 hours as needed for nausea -Tessalon Perles as needed for throat pain -Tamiflu 75 mg by mouth twice a day -Guaifenesin 600 mg by mouth twice a day Possible right lower lobe pneumonia: Chest x-ray taken on 03/25/16 demonstrated mild diffuse interstitial prominence. Chest x-ray obtained today is suspicious for a right lower lobe infiltrate. Patient was hospitalized as recently as January for pneumonia. High risk for aspiration concerning her mental status. Patient received 1 dose of vancomycin/ ceftazidime in the ER. -Ceftriaxone 1 g IV daily -Azithromycin 500 mg IV daily History of adrenal insufficiency: Given patient's hemodynamic instability in the ER she was given stress dose steroids for stabilization of her blood pressure. -Continue stress dose steroids (hydrocortisone 100 mg IV every 8 hours) -Accu-Cheks 3 times a day before meals/at bedtime -NovoLog sliding scale insulin -Endocrinology consult History of Down syndrome/mental retardation: -Depakote 500 mg by mouth daily Osteopenia/osteoporosis: -calcium carbonate 1250 mg by mouth daily -alendronate 70 mg by mouth every Monday -Vitamin D 1000 units by mouth daily Hyperlipidemia-stable, continue atorvastatin 20 mg Pain plan/bowel regimen: -Acetaminophen 650 mg by mouth every 6 hours as needed for pain 1-3 -Vicodin 1 tab by mouth every 8 hours as needed for pain 4-6 -Senokot S 2 tablets by mouth every evening Diet-heart healthy diet DVT prophylaxis-heparin CODE STATUS-full code As Ranked By This Provider Problem List: 1. Influenza Core Measures/Miscellaneous Acute Coronary Syndrome ACS Diagnosis: No Cerebrovascular Accident CVA/TIA Diagnosis: No Congestive Heart Failure CHF Diagnosis: No Venous Thromboembolism VTE Risk Factors: Age > 40 VTE Prophylaxis Ordered Inpt: Pharm- [facility] prophylaxis d/t: No contraindications No VTE Pharm Prophylaxis d/t: No contraindications VTE Diagnosis: No VTE Type: NONE VTE Confirmed by (Test): NONE Severe Sepsis Severe Sepsis Present: Yes BC x2: Yes Lactic Acid x2: Yes IV ABX Broad Spectrum: Yes NS/LR Started: Yes Septic Shock Septic Shock Present: Yes BC x2: Yes Lactic Acid: Yes IV ABX Broad Spectrum: Yes Focused Exam Completed: Yes NS/LR 30ml/kg w/in 3hrs: Yes IV Vasopressors started: No Miscellaneous Documentation Attending Case Discussed With: Obinna Gorman MD Primary Care Physician: HARMAN DONATO MD Patient sees these Specialists Unknown at this time Level of Patient Care: General Medicine Consults Needed: Consulting Specialty: Endocrinology ROSE MITCHELL,MARILEE 03/28/16 1604: General Information and HPI Allergies/Medications Home Med list Acetaminophen (Tylenol) 325 MG TABLET 1 TAB PO Q4-6 PRN PRN PAIN SCALE 1-3 ( MILD) (Reported) Acetaminophen 650 MG SUPP.RECT 1 SUPP [place] Q4 HRS NEEDED PRN FEVER > 101 ( Reported) Alendronate Sodium (Fosamax) 70 MG TABLET 1 TAB PO QSAT OSTEOPOROSIS ( Reported) in the morning, at least 30 minutes before the first food, beverage, or medication of the day Atorvastatin Calcium 20 MG TABLET 1 TAB PO QPM HIGH CHOLESTROL (Reported) Calcium Carbonate 600 MG TABLET 2 TAB PO QPM SUPPLEMENT (Reported) Cholecalciferol (Vitamin D3) (Vitamin D) 1,000 UNIT TABLET 1 TAB PO DAILY SUPPLEMENT (Reported) Divalproex Sodium (Depakote Sprinkle) 125 MG CAP.SPRINK 4 CAP PO 8AM SEIZURES (Reported) Divalproex Sodium (Depakote) 125 MG TABLET.DR 8 CAP PO 8PM SEIZURES (Reported ) Famotidine (Pepcid) 20 MG TABLET 1 TAB PO DAILY HEARTBURN (Reported) Fludrocortisone Acetate 0.1 MG TABLET 1 TAB PO EOD IDOPATHIC ORTHOSTATIC HTN (Reported) Guaifenesin (Mucinex) 600 MG TAB.ER.12H 1 TAB PO BID PRN Cough, sputum ( Reported) Hydrocodone/Acetaminophen (Hydrocodon-Acetaminophen 5-325) 5 MG-325 MG TABLET 1 TAB PO Q8P PRN PAIN SCALE 4-6 (MODERATE) (Reported) Hydrocortisone 5 MG TABLET 3 TAB PO QAM HYPOALDOSTRONISM (Reported) Reason to Stop at ADM: change to IV Hydrocortisone 5 MG TABLET 1 TAB PO QPM HYPOALDOSTRONISM (Reported) Reason to Stop at ADM: change to IV Lorazepam (Ativan) 0.5 MG TABLET 1 TAB PO QAM anxiety (Reported) Reason to Stop at ADM: respiratory distress Lorazepam (Ativan) 0.5 MG TABLET 2 TAB PO QPM anxiety (Reported) Reason to Stop at ADM: respiratory distress Montelukast Sodium (Singulair) 10 MG TABLET 1 TAB PO DAILY ASTHMA (Reported) Sennosides/Docusate Sodium (Senna S Tablet) 8.6 MG-50 MG TABLET 2 TAB PO QPM STOOL (Reported) Resident Review Statement Resident Statement: examined this patient, discussed with dietary internship, agreed with dietary internship, discussed with family, reviewed EMR data (avail), discussed with nursing , discussed with case mgmt, reviewed images, amended to note Other Findings: 50 yo female with pmh of Down syndrome, developmental disorder, impulse control disorder, adrenal insufficiency (on hydrcortisone & fludrocortisone), severe spinal stenosis, seizure disorder was brought from [facility] due to fever of 103.6F, desaturation 88% on RA, and greenish sputum from today. Per ECF, she started having cough on Monday (3DA) with low grade temperature (99.3F). She came to [facility] ED on Monday (03/25) due to back pain, and lumbar CT spine CT showed multi-level disc protrusion on L2-5. She was given pain medication and discharged from ED at that time. She is non-verbal at baseline,but able to tolerated po intake with puree diet per ECF. V/S: 97.7F (Tmax 103.4), NY 84 RR 29 BP 90/50 Sat 98% on 2L, alert, non-verbal, dry mucosa, no cervical LAD, regular rate, normal s1/s2, decreased lung sound, soft, non-tender abdomen, normal bowel sounds, no LE edema, symmetrical pulses, unable to follow neurologic exam. Lab: WBC 4.3, lactic acid 1.3, BUN/Cr 24/0.9, UA mod leukocyte esterase, packed WBC, positive influenza A CXR: Findings suggesting developing lower lobe infiltrate most convincing on the right. Continued follow-up is recommended. 1. Influenza A: will treat with po oseltaminir 75mg bid for 5 days. 2. Sepsis likely secondary to pneumonia/UTI: Influenza could be complicated with bacterial infection (from strep pneumoniae/pyogens or S.aureus) with her immunocompromised status on hydrocortisone. 1 dose of IV vanco/ceftazidime were given in ED. Keep MAP > 65 with IV fluid resuscitation. Will treat with empiric IV ceftriaxone/azithromycin for now, and may broden the coverage if her symptoms are not improving in 24 hours. Aspiration precaution. Follow up blood/sputum/ urine cultures. 3. Adrenal insufficiency: Will give stress dose of IV hydrocortisone according to endocrinology consult. continue po mineralocorticoid. Keep accuchecks with IV steroids. Follow endo consult. 4. Seizure disorder: continue po depakote as home dose. 5. Chronic pain secondary to spinal stenosis: c/w pain medication per pathway Code: full code, DVT ppx: SC heparin Case was discussed with Dr. Gorman, her DAVIDA Gage was updated. OBINNA GORMAN MD 03/28/166: Attending MD Review Statement Attending Statement Attending MD Statement: examined this patient, discuss w/resident/PA/WATCH BAND ASSEMBLER, agreed w/resident/PA/WATCH BAND ASSEMBLER, reviewed EMR data (avail) Attending Assessment/Plan: 50F PMH Down's Syndrome, non-verbal at baseline, adrenal insufficiency sent from SNF for 1 day of fever, chills, green sputum, and cough. Febrile to 103 in ED, found to be influenza positive. Patient can provide no information. Coarse breath sounds bilaterally with CXR showing LLL infiltrate. Hypotensive 86/62 in ED despite fluid resuscitation. Plan - Admit to general medicine - Start Tamiflu - Start Ceftriaxone and Azithromycin - Send sputum and blood cultures - Start Solucortef stress dose - Endocrine consult - Continue home medications - DVT PPx
--- NOTE | 2016-03-28 15:54 | NUR ---
INCONTINENT OF XL AMT OF STOOL, PERICARE PERFORMED, PT CHANGED BUTTOCKS RED, AND NON OPEN AREAS BARRIER CREAM APPLIED.
--- NOTE | 2016-03-28 15:57 | NUR ---
PT IS EXPECTORATING THICK YELLOW SECRETIONS. PT NONVERBAL ,ALERT. VSS
--- NOTE | 2016-03-28 16:25 | NUR ---
CONTINUES TO AWAIT BED ASSIGNMENT, DR ROSE PAGED RE INSULIN ORDER AND TAMIFLU ORDER. PT WITH FREQ SECRETIONS ?UNABLE TO LUIS PO. AC 98.
--- NOTE | 2016-03-28 16:59 | NUR ---
3RD CALL PLACED TO DR. CLANCY AT [facility].
--- NOTE | 2016-03-28 17:01 | NUR ---
MOD AWARE THAT PT ? CAN SWALLOW PO AT THIS TIME. PER MOD WILL ORDER DWALLOW EVAL.
--- NOTE | 2016-03-28 17:14 | Cons- Endocrinology ---
General Information and HPI Consulting Request Date of Consult: 03/28/16 Requested By: medical team Reason for Consult: Adrenal insufficiency and hypotension Source of Information: old records Exam Limitations: unable to give history, nonverbal History of Present Illness: This 50-year-old woman with a known past history of own syndrome and mental retardation also has a history of adrenal insufficiency documented in the past. At [facility] she was on hydrocortisone 15 mg in the morning and 5 mg at night. She was also on Florinef 0.1 mg every other day. She was brought in from [facility] by ambulance because of cough fever and production of sputum. She was found to be hypotensive in the emergency room. As oh at a high fever of 103 degrees. her blood sugar was noted to be low at 68. The patient had fluid resuscitation. She has also received hydrocortisone 60 mg IV. Allergies/Medications Allergies: Coded Allergies: NO KNOWN ALLERGIES (06/28/15) Home Med List: Acetaminophen (Tylenol) 325 MG TABLET 1 TAB PO Q4-6 PRN PRN PAIN SCALE 1-3 ( MILD) (Reported) Acetaminophen 650 MG SUPP.RECT 1 SUPP ND Q4 HRS NEEDED PRN FEVER > 101 ( Reported) Alendronate Sodium (Fosamax) 70 MG TABLET 1 TAB PO QSAT OSTEOPOROSIS ( Reported) in the morning, at least 30 minutes before the first food, beverage, or medication of the day Atorvastatin Calcium 20 MG TABLET 1 TAB PO QPM HIGH CHOLESTROL (Reported) Calcium Carbonate 600 MG TABLET 2 TAB PO QPM SUPPLEMENT (Reported) Cholecalciferol (Vitamin D3) (Vitamin D) 1,000 UNIT TABLET 1 TAB PO DAILY SUPPLEMENT (Reported) Divalproex Sodium (Depakote Sprinkle) 125 MG CAP.SPRINK 4 CAP PO 8AM SEIZURES (Reported) Divalproex Sodium (Depakote) 125 MG TABLET.DR 8 CAP PO 8PM SEIZURES (Reported ) Famotidine (Pepcid) 20 MG TABLET 1 TAB PO DAILY HEARTBURN (Reported) Fludrocortisone Acetate 0.1 MG TABLET 0.5 TAB PO DAILY ADRENAL INSUFFICIENCY FROM 04/01 WITH PO HYDROCORTISONE Guaifenesin (Mucinex) 600 MG TAB.ER.12H 1 TAB PO BID PRN Cough, sputum ( Reported) Hydrocodone/Acetaminophen (Hydrocodon-Acetaminophen 5-325) 5 MG-325 MG TABLET 1 TAB PO Q8P PRN PAIN SCALE 4-6 (MODERATE) (Reported) Hydrocortisone 5 MG TABLET 3 TAB PO QAM HYPOALDOSTRONISM (Reported) Reason to Stop at ADM: change to IV Hydrocortisone 5 MG TABLET 1 TAB PO QPM HYPOALDOSTRONISM (Reported) Reason to Stop at ADM: change to IV Lorazepam (Ativan) 0.5 MG TABLET 1 TAB PO QAM anxiety (Reported) Reason to Stop at ADM: respiratory distress Lorazepam (Ativan) 0.5 MG TABLET 2 TAB PO QPM anxiety (Reported) Reason to Stop at ADM: respiratory distress Montelukast Sodium (Singulair) 10 MG TABLET 1 TAB PO DAILY ASTHMA (Reported) Sennosides/Docusate Sodium (Senna S Tablet) 8.6 MG-50 MG TABLET 2 TAB PO QPM STOOL (Reported) Review of Systems Review of Systems Constitutional: Denies: no symptoms (ROS unobtainable). 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 Surgical History Surgical History: non-contributory Family History Relations & Conditions If Any: Relation not specified for: Family history unobtainable Psychosocial History Services at Home: Home Health Aide ETOH Use: denies use Illicit Drug Use: denies illicit drug use Exam & Diagnostic Data Last 24 Hrs of Vital Signs/I&O Vital Signs Date Time Temp Pulse Resp B/P Pulse O2 O2 Flow FiO2 Ox Delivery Rate 03/28 1618 98.9 83 24 92/62 91 Room Air 03/28 1415 86 18 92/50 92 Nasal 2.0L Cannula 03/28 1309 97.7 84 20 90/50 98 Nasal 2.0L Cannula 03/28 1211 97.9 95 20 92/55 92 Nasal 2.0L Cannula 03/28 1114 102 20 92/58 98 Nasal 2.0L Cannula 03/28 1034 100.6 100 20 80/50 96 Nasal 2.0L Cannula 03/28 1020 102 20 83/46 98 Nasal 2.0L Cannula 03/28 1000 98 Nasal 2.0L Cannula 03/28 0948 105 20 85/60 98 Nasal 2.0L Cannula 03/28 0930 103.4 03/28 0901 103.4 111 20 80/50 95 Nasal 2.0L Cannula Intake & Output 03/28 1600 03/28 0800 03/28 0000 Intake Total 3250 Output Total 20 Balance 3230 Intake, IV 3250 Output, Urine 20 Vital Signs Date Time Temp Pulse Resp B/P Pulse O2 O2 Flow FiO2 Ox Delivery Rate 03/28 1618 98.9 83 24 92/62 91 Room Air 03/28 1415 86 18 92/50 92 Nasal 2.0L Cannula 03/28 1309 97.7 84 20 90/50 98 Nasal 2.0L Cannula 03/28 1211 97.9 95 20 92/55 92 Nasal 2.0L Cannula 03/28 1114 102 20 92/58 98 Nasal 2.0L Cannula 03/28 1034 100.6 100 20 80/50 96 Nasal 2.0L Cannula 03/28 1020 102 20 83/46 98 Nasal 2.0L Cannula 03/28 1000 98 Nasal 2.0L Cannula 03/28 0948 105 20 85/60 98 Nasal 2.0L Cannula 03/28 0930 103.4 03/28 0901 103.4 111 20 80/50 95 Nasal 2.0L Cannula Intake & Output 03/28 1600 03/28 0800 03/28 0000 Intake Total 3250 Output Total 20 Balance 3230 Intake, IV 3250 Output, Urine 20 Physical Exam General Appearance: awake, mild distress, nonverbal Head: features of trisomy 21 Eyes: Bilateral: normal appearance. Neck: normal inspection Respiratory: rhonchi, increased respiratory rate Cardiovascular: regular rate/rhythm Gastrointestinal: normal bowel sounds, soft Labs/Franco Results: Laboratory Tests 03/28 03/28 1227 0930 Chemistry Sodium (137 - 145 mmol/L) 138 Potassium (3.5 - 5.1 mmol/L) 3.8 Chloride (98 - 107 mmol/L) 107 Carbon Dioxide (22 - 30 mmol/L) 25 Anion Gap (5 - 16) 6 BUN (7 - 17 mg/dL) 24 H Creatinine (0.5 - 1.0 mg/dL) 0.9 Estimated GFR (>60 ml/min) > 60 BUN/Creatinine Ratio (7 - 25 %) 26.7 H Glucose (65 - 99 mg/dL) 68 Lactic Acid (0.7 - 2.1 mmol/L) Cancelled 1.3 Calcium (8.4 - 10.2 mg/dL) 7.3 L Total Bilirubin (0.2 - 1.3 mg/dL) 0.4 AST (14 - 36 U/L) 24 ALT (9 - 52 U/L) 24 Alkaline Phosphatase (<127 U/L) 43 Troponin I (< 0.11 ng/ml) < 0.01 Total Protein (6.3 - 8.2 g/dL) 5.5 L Albumin (3.5 - 5.0 g/dL) 2.3 L Globulin (1.9 - 4.2 gm/dL) 3.2 Albumin/Globulin Ratio (1.1 - 2.2 %) 0.7 L Hematology CBC w Diff NO MAN DIFF REQ WBC (4.8 - 10.8 /CUMM) 4.3 L RBC (4.20 - 5.40 /CUMM) 3.65 L Hgb (12.0 - 16.0 G/DL) 12.5 Hct (37 - 47 %) 37.5 MCV (81.0 - 99.0 FL) 102.7 H MCH (27.0 - 31.0 PG) 34.1 H RDW (11.5 - 14.5 %) 18.0 H Plt Count (130 - 400 /CUMM) 213 MPV (7.4 - 10.4 FL) 9.5 Gran % (42.2 - 75.2 %) 68.7 Lymphocytes % (20.5 - 51.1 %) 17.6 L Monocytes % (1.7 - 9.3 %) 13.2 H Eosinophils % (0 - 5 %) 0.1 Basophils % (0.0 - 2.0 %) 0.4 Absolute Granulocytes (1.4 - 6.5 /CUMM) 3.0 Absolute Lymphocytes (1.2 - 3.4 /CUMM) 0.8 L Absolute Monocytes (0.10 - 0.60 /CUMM) 0.6 Absolute Eosinophils (0.0 - 0.7 /CUMM) 0 Absolute Basophils (0.0 - 0.2 /CUMM) 0 PUBS MCHC (33.0 - 37.0 G/DL) 33.2 Serology Virus Culture Pending Urines Urinalysis MOD H Urine Color (YEL,AMB,STR) YEL Urine Clarity (CLEAR) HAZY H Urine pH (5.0 - 8.0) 6.0 Ur Specific [place] (1.001 - 1.035) 1.025 Urine Protein (NEG,<30 MG/DL) >=300 H Urine Ketones (NEG) TRACE H Urine Nitrite (NEG) POS H Urine Bilirubin (NEG) NEG Urine Urobilinogen (0.1 - 1.0 EU/dl) 0.2 Ur Leukocyte Esterase (NEG) MOD H Ur Microscopic SEDIMENT EXAMINED Urine RBC (0 - 5 /HPF) 15-25 H Urine WBC (0 - 2 /HPF) PACKD H Ur Epithelial Cells (NONE,FEW) RARE Urine Mucus (FEW,NONE) FEW Urine Hemoglobin (NEG) LARGE H Urine Glucose (N MG/DL) NEG Assessment/Plan Assessment/Plan Patient has an acute respiratory illness possible pneumonia or flu with a high fever. In the ER she was found to be hypotensive and have a low sugar. Findings are consistent with acute adrenal insufficiency. She is already received over 3 L of IV fluids. I would recommend that the patient received Solu-Cortef 100 mg IV stat and 100 mg every 8 hours for the first 24 hours. This dose will be adjusted as the patient's condition improves. We can discontinue the Florinef at the present time. We should also continue the patient on IV fluids in the form of D5 half- normal saline at 100 mL per hour now that her blood pressure is improved. We should monitor the patient's blood sugars carefully by fingerstick every 6 hours while the patient is on stress dose steroids. The patient's serum calcium is low at 7.3 with an albumin of 2.3. Corrected serum calcium is 8.7. However I would measure a serum magnesium. Thyroid function tests should also be done including a free T4 and TSH. The patient should remain nothing by mouth issues high risk of aspiration. Consult Acknowledgment - Thank you for your consult request.
--- NOTE | 2016-03-28 17:28 | NUR ---
PT ADMITTED TO ROOM 207
--- NOTE | 2016-03-28 18:36 | NUR ---
SPOKE WITH DR. BEST RE BP PER DAY NURSE PT MUCH MORE ALERT. PT IS STABLE OPENS EYES HR WNL. NO DISTRESS WILL PULL AT NASAL CANULA. PER DR. BEST HANG 500CCS BOLUS WILL PLACE ORDER.
--- NOTE | 2016-03-28 19:07 | NUR ---
PER DR. BEST RESIDENT JODY WHO HAS SEEN PT ALREADY TO COME AND RE-EVAL PT HAS HX OF HYPOTENSION.
--- NOTE | 2016-03-28 19:50 | NUR ---
REPORT GIVEN TO ANTONIO NEGRETE
--- NOTE | 2016-03-28 20:39 | NUR ---
PT CONTINUES TO SLEEP. 02 94 ON 4L AT THIS TIME. WILL CTM.
[2016-03-28 21:20] VITALS: BP 100/65
--- NOTE | 2016-03-29 00:20 | NUR ---
2056 PATIENT ARRIVED TO FLOOR. BED LOW AND LOCKED. CALL LIGHT WITHIN [facility] PATIENT IS ALERT. REPIRATORY THERAPY NOTIFIED OF RESPIRATORY RATE
[2016-03-29 00:45] VITALS: BP 104/68
--- NOTE | 2016-03-29 02:08 | NUR ---
AT 2300 PT RR 45, O2 SAT 91% ON 1.5L NC. PT COUGHING UP THICK FROTHY SPUTUM, RESPIRATORY PAGED, PT NOW ON 3L NC WITH O2 SAT 98% AND RR 22. MD MADE AWARE OF VTIALS, WILL CONTINUE TO MONITOR
--- NOTE | 2016-03-29 03:30 | NUR ---
AT 0330 PT COUGHING UP THICK YELLOW SPUTUM AND SHIVERING. RECTAL TEMP TAKEN 97.7. SUCTIONED WITH MD RENETTA MERCADO MADE AWARE, TURNED ROOM TEMP UP AND EXTRA BLANKET, WILL FOLLOW UP.
--- NOTE | 2016-03-29 07:40 | PN- Housestaff ---
Subjective Follow-up For: Influenza Sepsis UTI Adrenal Insufficieny Subjective: Patient seen and examined. She is seen lying flat in bed resting comfortably. She appears to be in no acute distress. Subjective compaints are unobtainable as patient is nonverbal at baseline. She appears more awake and alert. Review of systems is unobtainable. No overnight events reported. Review of Systems Constitutional: Reports: see HPI. Objective Last 24 Hrs of Vital Signs/I&O Vital Signs Date Time Temp Pulse Resp B/P Pulse O2 O2 Flow FiO2 Ox Delivery Rate 03/29 205 88 Room Air 03/29 1542 97.8 86 18 102/80 92 03/29 1150 Room Air Room Air 03/29 1150 92 Room Air Room Air 03/29 0954 92 Room Air 03/29 0854 97.4 88 22 100/72 95 03/29 0800 92 Room Air 03/29 0330 97.7 03/29 0115 22 98 Nasal 3.0L Cannula 03/29 0045 98.2 96 45 104/68 91 Nasal 1.5L Cannula 03/29 0000 98 Nasal 3.0L Cannula 03/28 2136 92 Nasal 3.0L Cannula 03/280 100.3 80 48 100/65 91 Nasal 5.0L Cannula Intake & Output 03/29 1600 03/29 0800 03/29 0000 Intake Total 790 Output Total Balance 790 Intake, IV 550 Intake, Oral 240 Number 0 Bowel Movements Physical Exam General Appearance: No Acute Distress Other Physical Findings: General - well developed, well nourished nonverbal middle aged woman in no acute distress HEENT - NCAT, anicteric sclera CVS - S1, S2 w/o m/g/r Resp - CTA bilaterally GI - Soft, NT, ND, bowel sounds + Neuro - Awake and alert, nonverbal, does no follow commands Ext - distal pulses intact, no lower extremity edema Current Medications: Current Medications Sig/Keerthi Start time Last Medication Dose Route Stop Time Status Admin Acetaminophen 650 MG Q6P PRN 03/28 1445 AC PO Acetaminophen/ 1 TAB Q8P PRN 03/28 1600 AC Hydrocodone Bitart PO Albuterol Sulfate 3 ML Q4P PRN 03/29 1200 AC INH Alendronate Sodium 70 MG QSAT 04/02 0700 AC PO Atorvastatin Calcium 20 MG QPM 03/28 2200 AC PO Azithromycin 500 MG DAILY 03/29 1000 AC 03/29 Dextrose/Water 250 ML IV 0945 Calcium Carbonate 1,250 MG DAILY 03/29 1000 AC PO Ceftriaxone Sodium 1,000 MG DAILY 03/29 1000 AC 03/29 IV 0945 Cholecalciferol 1,000 IU DAILY 03/29 1000 AC PO Dextrose/Sodium 1,000 ML Q10H 03/28 2215 AC 03/29 Chloride IV 0945 Divalproex Sodium 500 MG 8AM 03/30 0800 AC PO Divalproex Sodium 1,000 MG 03/29 2000 AC PO Divalproex Sodium 500 MG 8AM 03/29 0800 DC PO Divalproex Sodium 1,000 MG 03/28 2000 DC PO Famotidine 20 MG DAILY 03/29 1000 AC PO Fludrocortisone 100 MCG Q48H 03/29 0800 AC Acetate PO Guaifenesin 600 MG BID PRN 03/28 1600 AC PO Heparin Sodium 5,000 UNIT .STK-MED ONE 03/29 0538 DC (Porcine) IV 03/29 0539 Heparin Sodium 5,000 UNIT .STK-MED ONE 03/29 0458 DC (Porcine) IV 03/29 0459 Heparin Sodium 5,000 UNIT Q8 03/28 1400 AC 03/29 (Porcine) SC 1312 Hydrocortisone 50 MG 0000,0800,1600 03/29 1600 AC 03/29 Sodium Succinate IV 1555 Hydrocortisone 100 MG 0000,0800,1600 03/29 0000 DC 03/29 Sodium Succinate IV 0945 Insulin Aspart 0 TIDAC 03/29 1700 AC SC Insulin Aspart 0 TIDAC 03/28 1700 DC SC Insulin Human Regular 0 Q6 03/29 0851 DC 03/29 SC 1313 Magnesium Sulfate 1 GM Q2H 03/29 0745 DC 03/29 Dextrose/Water 100 ML IV 03/29 1144 1555 Montelukast Sodium 10 MG AT BEDTIME 03/29 2200 AC PO Oseltamivir Phosphate 75 MG BID 03/28 1515 AC PO 04/01 2201 Senna/Docusate Sodium 2 TAB QPM 03/28 2200 AC PO Sodium Chloride 1,000 ML Q8H 03/28 1845 DC 03/28 IV 2027 Valproate Sodium 1,000 MG 03/29 2000 CAN Sodium Chloride 100 ML IV Valproate Sodium 500 MG DAILY 03/29 1000 DC 03/29 Sodium Chloride 100 ML IV 1208 Last 24 Hrs of Lab/Franco Results Last 24 Hrs of Labs/Mics: Laboratory Tests 03/29/16 0845: Anion Gap 7, Estimated GFR > 60, BUN/Creatinine Ratio 24.3, CBC w Diff MAN DIFF ORDERED, RBC 3.63 L, MCV 103.6 H, MCH 34.2 H, RDW 18.1 H, MPV 9.0, Gran % 86.2 H, Lymphocytes % 10.8 L, Monocytes % 3.0, Eosinophils % 0, Basophils % 0 L, Absolute Granulocytes 8.1 H, Segmented Neutrophils 66, Band Neutrophils 23 H, Absolute Lymphocytes 1.0 L, Lymphocytes 8 L, Monocytes 3, Absolute Monocytes 0.3, Absolute Eosinophils 0, Absolute Basophils 0, Platelet Estimate VERIFIED BY SMEAR, Anisocytosis 1+, Macrocytic Cells 1+, PUBS MCHC 33.0 Assessment/Plan Assessment: Patient is more awake and alert today. She is still maintained on antibiotics for the possible right lower lobe pneumonia and urinary tract infection. Stress dose steroids are being tapered. Fingersticks have been within normal limits. Patient passed a swallow evaluation today and was started on a diet. Influenza A: Patient recently seen in the [place] ED on 03/25/16 for evaluation of back pain where a chest x-ray obtained demonstrated mild diffuse interstitial prominence. Collateral information obtained from the halfway staff determined that patient's symptoms of fever and cough have been present since that same day. Patient appeared ill this morning with new green frothy sputum for which she was brought in by ambulance for evaluation. and rapid flu test is positive for influenza A. -Acetaminophen 650 mg by mouth every 6 hours as needed for fever or pain 1-3 -Zofran 4 mg IV every 6 hours as needed for nausea -Tessalon Perles as needed for throat pain -Tamiflu 75 mg by mouth twice a day -Guaifenesin 600 mg by mouth twice a day Possible right lower lobe pneumonia: Chest x-ray taken on 03/25/16 demonstrated mild diffuse interstitial prominence. Chest x-ray obtained today is suspicious for a right lower lobe infiltrate. Patient was hospitalized as recently as January for pneumonia. High risk for aspiration concerning her mental status. Patient received 1 dose of vancomycin/ ceftazidime in the ER. -Ceftriaxone 1 g IV daily -Azithromycin 500 mg IV daily History of adrenal insufficiency: Given patient's hemodynamic instability in the ER she was given stress dose steroids for stabilization of her blood pressure. -Hydrocortisone 50 mg IV every 8 hours -Accu-Cheks 3 times a day before meals/at bedtime -NovoLog sliding scale insulin -Endocrinology consult History of Down syndrome/mental retardation: -Depakote 500 mg by mouth daily Osteopenia/osteoporosis: -calcium carbonate 1250 mg by mouth daily -alendronate 70 mg by mouth every Monday -Vitamin D 1000 units by mouth daily Hyperlipidemia-stable, continue atorvastatin 20 mg Pain plan/bowel regimen: -Acetaminophen 650 mg by mouth every 6 hours as needed for pain 1-3 -Vicodin 1 tab by mouth every 8 hours as needed for pain 4-6 -Senokot S 2 tablets by mouth every evening Diet-heart healthy diet DVT prophylaxis-heparin CODE STATUS-full code Problem List: 1. Influenza Pain Ratin Pain Location: None Pain Goal: Remain pain free Pain Plan: As noted in plan Tomorrow's Labs & Rationales: CBC BMP Consulting Request: Consulting Specialty: Endocrinology
--- NOTE | 2016-03-29 07:59 | PN- Endocrinology ---
Assessment/Plan Assessment: The patient is much better this morning. Her blood pressure has improved. She has many fewer secretions. She is presently on hydrocortisone 100 mg IV every 8 hours and IV fluids in the form of D5 half-normal saline at 100 mL per hour. Plan: Suggest that we begin to taper her hydrocortisone. We can reduce Solu-Cortef to 50 mg IV every 8 hours. Would also continue the IV fluids at the present rate. The patient needs to have repeat labs drawn this morning to recheck her BUN/ creatinine and electrolytes calcium and albumin as well as her serum magnesium. The patient will need a swallowing evaluation done before her diet can be resumed. Subjective Subjective: Cannot answer questions Objective Last 24 Hrs of Vital Signs/I&O Vital Signs Date Time Temp Pulse Resp B/P Pulse O2 O2 Flow FiO2 Ox Delivery Rate 03/29 0330 97.7 03/29 0115 22 98 Nasal 3.0L Cannula 03/29 0045 98.2 96 45 104/68 91 Nasal 1.5L Cannula 03/29 0000 98 Nasal 3.0L Cannula 03/28 2136 92 Nasal 3.0L Cannula 03/28 2120 100.3 80 48 100/65 91 Nasal 5.0L Cannula 03/28 1934 96.7 100 20 96/61 95 Nasal 2.5L Cannula 03/28 1756 96.7 90 20 86/68 94 Nasal 2.0L Cannula 03/28 1618 98.9 83 24 92/62 91 Room Air 03/28 1415 86 18 92/50 92 Nasal 2.0L Cannula 03/28 1309 97.7 84 20 90/50 98 Nasal 2.0L Cannula 03/28 1211 97.9 95 20 92/55 92 Nasal 2.0L Cannula 03/28 1114 102 20 92/58 98 Nasal 2.0L Cannula 03/28 1034 100.6 100 20 80/50 96 Nasal 2.0L Cannula 03/28 1020 102 20 83/46 98 Nasal 2.0L Cannula 03/28 1000 98 Nasal 2.0L Cannula 03/28 0948 105 20 85/60 98 Nasal 2.0L Cannula 03/28 0930 103.4 03/28 0901 103.4 111 20 80/50 95 Nasal 2.0L Cannula Vital Signs Date Time Temp Pulse Resp B/P Pulse O2 O2 Flow FiO2 Ox Delivery Rate 03/29 0330 97.7 03/29 0115 22 98 Nasal 3.0L Cannula 03/29 0045 98.2 96 45 104/68 91 Nasal 1.5L Cannula 03/29 0000 98 Nasal 3.0L Cannula 03/286 92 Nasal 3.0L Cannula 03/280 100.3 80 48 100/65 91 Nasal 5.0L Cannula 03/28 1934 96.7 100 20 96/61 95 Nasal 2.5L Cannula 03/28 1756 96.7 90 20 86/68 94 Nasal 2.0L Cannula 03/28 1618 98.9 83 24 92/62 91 Room Air 03/28 1415 86 18 92/50 92 Nasal 2.0L Cannula 03/28 1309 97.7 84 20 90/50 98 Nasal 2.0L Cannula 03/28 1211 97.9 95 20 92/55 92 Nasal 2.0L Cannula 03/28 1114 102 20 92/58 98 Nasal 2.0L Cannula 03/28 1034 100.6 100 20 80/50 96 Nasal 2.0L Cannula 03/28 1020 102 20 83/46 98 Nasal 2.0L Cannula 03/28 1000 98 Nasal 2.0L Cannula 03/28 0948 105 20 85/60 98 Nasal 2.0L Cannula 03/28 0930 103.4 03/28 0901 103.4 111 20 80/50 95 Nasal 2.0L Cannula Physical Exam General Appearance: alert, comfortable Head: normal appearance Neck: normal inspection Respiratory: normal breath sounds Cardiovascular: regular rate/rhythm Abdomen: normal bowel sounds Extremities: normal inspection Current Medications: Current Medications Sig/Keerthi Start time Last Medication Dose Route Stop Time Status Admin Acetaminophen 650 MG Q6P PRN 03/28 1445 AC PO Acetaminophen 0 .STK-MED ONE 03/28 0936 DC IV Acetaminophen 1,000 MG ONCE ONE 03/28 0930 DC 03/28 N/A 1 UNIT IV 03/28 0944 0930 Acetaminophen/ 1 TAB Q8P PRN 03/28 1600 AC Hydrocodone Bitart PO Alendronate Sodium 70 MG QSAT 04/02 0700 AC PO Atorvastatin Calcium 20 MG QPM 03/28 2200 AC PO Azithromycin 500 MG DAILY 03/29 1000 AC Dextrose/Water 250 ML IV Azithromycin 500 MG ONCE ONE 03/28 0930 CAN Dextrose/Water 250 ML IV 03/28 1029 Calcium Carbonate 1,250 MG DAILY 03/29 1000 AC PO Ceftazidime 0 .STK-MED ONE 03/28 1003 DC .ROUTE Ceftazidime 1,000 MG ONCE ONE 03/28 0945 DC 03/28 IV 03/28 0946 1000 Ceftriaxone Sodium 1,000 MG DAILY 03/29 1000 AC IV Ceftriaxone Sodium 1,000 MG ONCE ONE 03/28 0930 CAN IV 03/28 0931 Cholecalciferol 1,000 IU DAILY 03/29 1000 AC PO Dextrose/Sodium 1,000 ML Q10H 03/28 2215 AC 03/28 Chloride IV 2223 Divalproex Sodium 500 MG 8AM 03/29 0800 AC PO Divalproex Sodium 1,000 MG 2000 03/28 2000 AC PO Divalproex Sodium 1,000 MG .[8PM] 03/28 1600 DC PO Famotidine 20 MG DAILY 03/29 1000 AC PO Fludrocortisone 100 MCG Q48H 03/29 0800 AC Acetate PO Guaifenesin 600 MG BID PRN 03/28 1600 AC PO Guaifenesin 0 .STK-MED ONE 03/28 1002 DC PO Guaifenesin 10 ML ONCE ONE 03/28 0945 DC 03/28 PO 03/28 0946 1000 Heparin Sodium 0 .STK-MED ONE 03/28 1412 DC (Porcine) .ROUTE Heparin Sodium 5,000 UNIT Q8 03/28 1400 AC 03/29 (Porcine) SC 0544 Hydrocortisone 100 MG 0000,0800,1600 03/29 0000 AC 03/29 Sodium Succinate IV 0050 Hydrocortisone 40 MG ONE ONE 03/28 1600 DC Sodium Succinate IV 03/28 1601 Hydrocortisone 60 MG DAILY 03/28 1445 DC 03/28 Sodium Succinate IV 03/30 1001 1500 Insulin Aspart 0 TIDAC 03/28 1700 AC SC Magnesium Sulfate 1 GM Q2H 03/29 0745 AC Dextrose/Water 100 ML IV 03/29 1144 Montelukast Sodium 10 MG AT BEDTIME 03/29 2200 AC PO Oseltamivir Phosphate 75 MG BID 03/28 1515 AC PO 04/01 2201 Senna/Docusate Sodium 2 TAB QPM 03/28 2200 AC PO Sodium Chloride 500 ML BOLUS ONE 03/28 1845 DC 03/28 IV 03/28 1944 1845 Sodium Chloride 1,000 ML Q8H 03/28 1845 DC 03/28 IV 2027 Sodium Chloride 1,000 ML BOLUS ONE 03/28 0930 DC 03/28 IV 03/28 1029 0930 Sodium Chloride 1,000 ML BOLUS ONE 03/28 0930 DC 03/28 IV 03/28 1029 0930 Sodium Chloride 1,000 ML BOLUS ONE 03/28 0930 DC 03/28 IV 03/28 1029 1030 Vancomycin HCl 0 .STK-MED ONE 03/28 1003 DC .ROUTE Vancomycin HCl 1,000 MG ONCE ONE 03/28 09 DC 03/28 Dextrose/Water 250 ML IV 03/28 1044 1013 Results Pertinent Lab/Franco Results: Laboratory Tests 03/28 03/28 1227 0930 Chemistry Sodium (137 - 145 mmol/L) 138 Potassium (3.5 - 5.1 mmol/L) 3.8 Chloride (98 - 107 mmol/L) 107 Carbon Dioxide (22 - 30 mmol/L) 25 Anion Gap (5 - 16) 6 BUN (7 - 17 mg/dL) 24 H Creatinine (0.5 - 1.0 mg/dL) 0.9 Estimated GFR (>60 ml/min) > 60 BUN/Creatinine Ratio (7 - 25 %) 26.7 H Glucose (65 - 99 mg/dL) 68 Lactic Acid (0.7 - 2.1 mmol/L) Cancelled 1.3 Calcium (8.4 - 10.2 mg/dL) 7.3 L Magnesium (1.6 - 2.3 mg/dL) 1.7 Total Bilirubin (0.2 - 1.3 mg/dL) 0.4 AST (14 - 36 U/L) 24 ALT (9 - 52 U/L) 24 Alkaline Phosphatase (<127 U/L) 43 Troponin I (< 0.11 ng/ml) < 0.01 Total Protein (6.3 - 8.2 g/dL) 5.5 L Albumin (3.5 - 5.0 g/dL) 2.3 L Globulin (1.9 - 4.2 gm/dL) 3.2 Albumin/Globulin Ratio (1.1 - 2.2 %) 0.7 L TSH (0.270 - 4.200 uIU/mL) 0.920 Free T4 (0.64 - 1.79 ng/dL) 1.11 Hematology CBC w Diff NO MAN DIFF REQ WBC (4.8 - 10.8 /CUMM) 4.3 L RBC (4.20 - 5.40 /CUMM) 3.65 L Hgb (12.0 - 16.0 G/DL) 12.5 Hct (37 - 47 %) 37.5 MCV (81.0 - 99.0 FL) 102.7 H MCH (27.0 - 31.0 PG) 34.1 H RDW (11.5 - 14.5 %) 18.0 H Plt Count (130 - 400 /CUMM) 213 MPV (7.4 - 10.4 FL) 9.5 Gran % (42.2 - 75.2 %) 68.7 Lymphocytes % (20.5 - 51.1 %) 17.6 L Monocytes % (1.7 - 9.3 %) 13.2 H Eosinophils % (0 - 5 %) 0.1 Basophils % (0.0 - 2.0 %) 0.4 Absolute Granulocytes (1.4 - 6.5 /CUMM) 3.0 Absolute Lymphocytes (1.2 - 3.4 /CUMM) 0.8 L Absolute Monocytes (0.10 - 0.60 /CUMM) 0.6 Absolute Eosinophils (0.0 - 0.7 /CUMM) 0 Absolute Basophils (0.0 - 0.2 /CUMM) 0 PUBS MCHC (33.0 - 37.0 G/DL) 33.2 Serology Virus Culture Pending Urines Urinalysis MOD H Urine Color (YEL,AMB,STR) YEL Urine Clarity (CLEAR) HAZY H Urine pH (5.0 - 8.0) 6.0 Ur Specific [place] (1.001 - 1.035) 1.025 Urine Protein (NEG,<30 MG/DL) >=300 H Urine Ketones (NEG) TRACE H Urine Nitrite (NEG) POS H Urine Bilirubin (NEG) NEG Urine Urobilinogen (0.1 - 1.0 EU/dl) 0.2 Ur Leukocyte Esterase (NEG) MOD H Ur Microscopic SEDIMENT EXAMINED Urine RBC (0 - 5 /HPF) 15-25 H Urine WBC (0 - 2 /HPF) PACKD H Ur Epithelial Cells (NONE,FEW) RARE Urine Mucus (FEW,NONE) FEW Urine Hemoglobin (NEG) LARGE H Urine Glucose (N MG/DL) NEG
[2016-03-29 08:54] VITALS: BP 100/72
[2016-03-29 09:28] LABS: ABSOLUTE BASOPHIL COUNT 0 /CUMM (0.0-0.2); ABSOLUTE EOSINOPHIL COUNT 0 /CUMM (0.0-0.7); ABSOLUTE GRANULOCYTE CT 8.1 /CUMM (1.4-6.5); ABSOLUTE MONOCYTE COUNT 0.3 /CUMM (0.10-0.60); BASOPHIL % 0 % (0.0-2.0); EOSINOPHIL % 0 % (0-5); GRANULOCYTE % 86.2 % (42.2-75.2); HEMATOCRIT 37.6 % (37-47); MEAN CORPUSCULAR HGB 34.2 PG (27.0-31.0); MEAN CORPUSCULAR VOLUME 103.6 FL (81.0-99.0); PLATELET COUNT 190 /CUMM (130-400); RBC DISTRIBUTION WIDTH 18.1 % (11.5-14.5); RED BLOOD CELL CT 3.63 /CUMM (4.20-5.40)
[2016-03-29 10:12] LABS: WHITE BLOOD CELL COUNT 9.4 /CUMM (4.8-10.8)
[2016-03-29 15:42] VITALS: BP 102/80
--- NOTE | 2016-03-29 16:29 | PN- Att Addend ---
Attending MD Review Statement Attending Statement Attending MD Statement: examined this patient, discuss w/resident/PA/BACK WEDGER, agreed w/resident/PA/BACK WEDGER, reviewed EMR data (avail) Attending Assessment/Plan: 50-year-old female with past medical history significant for Down syndrome, mental retardation, nonverbal at baseline, and adrenal insufficiency brought in by ambulance from [facility] for evaluation of cough, low-grade fever, and green frothy sputum. Pt found to have pneumonia on CXR with rt lower lobe infiltrates and also found to be influenza A positive. Started on tamiflu and ceftriaxone and zithromax. Also started on stress dose steroids at admission. being tapered to 50mg q8hr today.
[2016-03-30] VITALS: BP 110/78
--- NOTE | 2016-03-30 03:00 | NUR ---
AT 0026 PT NOTED TO HAVE PULLED OUT IV IN THE LH. BREA HILLIARD MD BILATERAL SOFT WRIST RESTRAINTS ORDERED. NEW IV PLACED, WILL CONTINUE TO MONITOR.
--- NOTE | 2016-03-30 07:19 | PN- Housestaff ---
See Addendum Subjective Follow-up For: Influenza Sepsis UTI Adrenal Insufficiency Subjective: Patient seen and examined. She is seen lying upright in bed resting comfortably. She is maintained in bilateral upper extremity restraints for pulling at her IV. She appears to be in no acute distress. She is nonverbal at baseline and subjective complaints cannot be obtained. Review of systems is unobtainable. No overnight events reported other than above. Review of Systems Constitutional: Reports: see HPI. Objective Last 24 Hrs of Vital Signs/I&O Vital Signs Date Time Temp Pulse Resp B/P Pulse O2 O2 Flow FiO2 Ox Delivery Rate 03/30 0836 98.1 57 20 112/64 95 Room Air 03/30 0000 91 Room Air 03/30 0000 98.1 92 19 110/78 91 Room Air 03/29 2050 88 Room Air 03/29 1542 97.8 86 18 102/80 92 03/29 1150 Room Air Room Air 03/29 1150 92 Room Air Room Air Intake & Output 03/30 1600 03/30 0800 03/30 0000 Intake Total 800 920 Output Total Balance 800 920 Intake, IV 800 800 Intake, Oral 120 Number 0 Bowel Movements Physical Exam General Appearance: Alert, No Acute Distress Other Physical Findings: General -well-developed, nonverbal middle-aged woman in soft restraints in no acute distress HEENT - NCAT, PERRL, EOMI, anicteric sclera Cardio - S1, S2 w/o murmurs/gallops/rubs Resp -rhonchi heard in right lung keenan without crackles GI - soft, nontender, nondistended, bowel sounds present Neuro - Awake and alert, CN II - XII grossly intact Extremities - no edema, pulses intact Current Medications: Current Medications Sig/Keerthi Start time Last Medication Dose Route Stop Time Status Admin Acetaminophen 650 MG Q6P PRN 03/28 1445 AC PO Acetaminophen/ 1 TAB Q8P PRN 03/28 1600 AC Hydrocodone Bitart PO Albuterol Sulfate 3 ML Q4P PRN 03/29 1200 AC INH Alendronate Sodium 70 MG QSAT 04/02 0700 AC PO Atorvastatin Calcium 20 MG QPM 03/28 2200 AC 03/29 PO 2117 Azithromycin 500 MG DAILY 03/29 1000 AC 03/30 Dextrose/Water 250 ML IV 0923 Calcium Carbonate 1,250 MG DAILY 03/29 1000 AC 03/30 PO 0923 Ceftriaxone Sodium 1,000 MG DAILY 03/29 1000 AC 03/30 IV 0923 Cholecalciferol 1,000 IU DAILY 03/29 1000 AC 03/30 PO 0923 Dextrose/Sodium 1,000 ML Q10H 03/28 2215 AC 03/30 Chloride IV 0436 Divalproex Sodium 500 MG 8AM 03/30 0800 AC 03/30 PO 0923 Divalproex Sodium 1,000 MG 03/29 AC 03/29 PO 2117 Famotidine 20 MG DAILY 03/29 1000 AC 03/30 PO 0923 Fludrocortisone 100 MCG Q48H 03/29 0800 AC Acetate PO Guaifenesin 600 MG BID PRN 03/28 1600 AC PO Heparin Sodium 5,000 UNIT .STK-MED ONE 03/29 1309 DC (Porcine) IV 03/29 1310 Heparin Sodium 5,000 UNIT Q8 03/28 1400 AC 03/30 (Porcine) SC 0505 Hydrocortisone 50 MG 0000,0800,1600 03/29 1600 AC 03/30 Sodium Succinate IV 0923 Hydrocortisone 100 MG 0000,0800,1600 03/29 0000 DC 03/29 Sodium Succinate IV 0945 Insulin Aspart 0 TIDAC 03/29 1700 AC 03/30 SC 0931 Insulin Human Regular 0 Q6 03/29 0851 DC 03/29 SC 1313 Magnesium Sulfate 1 GM Q2H 03/29 0745 DC 03/29 Dextrose/Water 100 ML IV 03/29 1144 1555 Montelukast Sodium 10 MG AT BEDTIME 03/29 2200 AC 03/29 PO 2116 Oseltamivir Phosphate 75 MG BID 03/28 1515 AC 03/30 PO 04/01 2201 0923 Senna/Docusate Sodium 2 TAB QPM 03/28 2200 AC 03/29 PO 2116 Valproate Sodium 1,000 MG 03/29 2000 CAN Sodium Chloride 100 ML IV Valproate Sodium 500 MG DAILY 03/29 1000 DC 03/29 Sodium Chloride 100 ML IV 1208 Last 24 Hrs of Lab/Franco Results Last 24 Hrs of Labs/Mics: Laboratory Tests 03/30/16 0740: Anion Gap 8, Estimated GFR > 60, BUN/Creatinine Ratio 16.0, Magnesium 2.3, CBC w Diff NO MAN DIFF REQ, RBC 3.41 L, MCV 103.6 H, MCH 34.1 H, RDW 18.0 H, MPV 9.0, Gran % 82.3 H, Lymphocytes % 13.6 L, Monocytes % 4.0, Eosinophils % 0, Basophils % 0.1, Absolute Granulocytes 7.8 H, Absolute Lymphocytes 1.3, Absolute Monocytes 0.4, Absolute Eosinophils 0, Absolute Basophils 0, PUBS MCHC 33.0 Assessment/Plan Assessment: Overnight patient was reportedly pulling her IV lines for which the night team place the patient in bilateral upper extremity soft restraints. She appears more awake and alert today and is clinically improving on the current therapy. She is to be maintained on intravenous antibiotics and steroids today with conversion to oral formulations most likely tomorrow. She is tolerating her oral diet well that was started yesterday. Steroids will be tapered tomorrow and patient will be considered for discharge. Influenza A: Patient recently seen in the [place] [facility] ED on 03/25/16 for evaluation of back pain where a chest x-ray obtained demonstrated mild diffuse interstitial prominence. Collateral information obtained from the correction staff determined that patient's symptoms of fever and cough have been present since that same day. Patient appeared ill this morning with new green frothy sputum for which she was brought in by ambulance for evaluation. and rapid flu test is positive for influenza A. -Acetaminophen 650 mg by mouth every 6 hours as needed for fever or pain 1-3 -Zofran 4 mg IV every 6 hours as needed for nausea -Tessalon Perles as needed for throat pain -Tamiflu 75 mg by mouth twice a day -Guaifenesin 600 mg by mouth twice a day Possible right lower lobe pneumonia: Chest x-ray taken on 03/25/16 demonstrated mild diffuse interstitial prominence. Chest x-ray obtained today is suspicious for a right lower lobe infiltrate. Patient was hospitalized as recently as January for pneumonia. High risk for aspiration concerning her mental status. Patient received 1 dose of vancomycin/ ceftazidime in the ER. -Ceftriaxone 1 g IV daily -Azithromycin 500 mg IV daily History of adrenal insufficiency: Given patient's hemodynamic instability in the ER she was given stress dose steroids for stabilization of her blood pressure. -Hydrocortisone 50 mg IV every 12 hours -Accu-Cheks 3 times a day before meals/at bedtime -NovoLog sliding scale insulin -Endocrinology consult History of Down syndrome/mental retardation: -Depakote 500 mg by mouth daily Osteopenia/osteoporosis: -calcium carbonate 1250 mg by mouth daily -alendronate 70 mg by mouth every Monday -Vitamin D 1000 units by mouth daily Hyperlipidemia-stable, continue atorvastatin 20 mg Pain plan/bowel regimen: -Acetaminophen 650 mg by mouth every 6 hours as needed for pain 1-3 -Vicodin 1 tab by mouth every 8 hours as needed for pain 4-6 -Senokot S 2 tablets by mouth every evening Diet-heart healthy diet DVT prophylaxis-heparin CODE STATUS-full code Problem List: 1. Influenza Pain Ratin Pain Location: None Pain Goal: Remain pain free Pain Plan: As noted in plan Tomorrow's Labs & Rationales: Complete blood count Basic metabolic panel Consulting Request: Consulting Specialty: Endocrinology
--- NOTE | 2016-03-30 08:04 | PN- Endocrinology ---
Assessment/Plan Assessment: The patient continues to improve.. Her blood pressure has remained good.. She has many fewer secretions. She is presently on hydrocortisone 50 mg IV every 8 hours and IV fluids in the form of D5 half-normal saline at 100 mL per hour. Plan: Suggest reduce Solu-Cortef to 50 mg IV every 12 hours today and 50 mg once a day starting tomorrow a.m. Thereafter if the patient is taking by mouth we can place her on maintenance PO hydrocortisone which is 15 mg of hydrocortisone in the morning and 5 mg of hydrocortisone in the evening around 4 to 5 PM. Her Florinef can also be restarted when she is on by mouth in a dosage of 0.05 mg once a day Subjective Subjective: Patient is nonverbal Objective Last 24 Hrs of Vital Signs/I&O Vital Signs Date Time Temp Pulse Resp B/P Pulse O2 O2 Flow FiO2 Ox Delivery Rate 03/30 0000 91 Room Air 03/30 0000 98.1 92 19 110/78 91 Room Air 03/29 2050 88 Room Air 03/29 1542 97.8 86 18 102/80 92 03/29 1150 Room Air Room Air 03/29 1150 92 Room Air Room Air 03/29 0954 92 Room Air 03/29 0854 97.4 88 22 100/72 95 03/29 0800 92 Room Air Intake & Output 03/30 0800 03/30 0000 03/29 1600 Intake Total 800 920 790 Output Total Balance 800 920 790 Intake, IV 800 800 550 Intake, Oral 120 240 Number 0 0 Bowel Movements Physical Exam General Appearance: alert, awake, comfortable Head: normal appearance Respiratory: rhonchi Cardiovascular: regular rate/rhythm Abdomen: normal bowel sounds Extremities: normal inspection Current Medications: Current Medications Sig/Keerthi Start time Last Medication Dose Route Stop Time Status Admin Acetaminophen 650 MG Q6P PRN 03/28 1445 AC PO Acetaminophen/ 1 TAB Q8P PRN 03/28 1600 AC Hydrocodone Bitart PO Albuterol Sulfate 3 ML Q4P PRN 03/29 1200 AC INH Alendronate Sodium 70 MG QSAT 04/02 0700 AC PO Atorvastatin Calcium 20 MG QPM 03/28 2200 AC 03/29 PO 2117 Azithromycin 500 MG DAILY 03/29 1000 AC 03/29 Dextrose/Water 250 ML IV 0945 Calcium Carbonate 1,250 MG DAILY 03/29 1000 AC PO Ceftriaxone Sodium 1,000 MG DAILY 03/29 1000 AC 03/29 IV 0945 Cholecalciferol 1,000 IU DAILY 03/29 1000 AC PO Dextrose/Sodium 1,000 ML Q10H 03/28 2215 AC 03/30 Chloride IV 0436 Divalproex Sodium 500 MG 8AM 03/30 0800 AC PO Divalproex Sodium 1,000 MG 03/29 2000 AC 03/29 PO 2117 Divalproex Sodium 500 MG 8AM 03/29 0800 DC PO Divalproex Sodium 1,000 MG 03/28 2000 DC PO Famotidine 20 MG DAILY 03/29 1000 AC PO Fludrocortisone 100 MCG Q48H 03/29 0800 AC Acetate PO Guaifenesin 600 MG BID PRN 03/28 1600 AC PO Heparin Sodium 5,000 UNIT .STK-MED ONE 03/29 1309 DC (Porcine) IV 03/29 1310 Heparin Sodium 5,000 UNIT Q8 03/28 1400 AC 03/30 (Porcine) SC 0505 Hydrocortisone 50 MG 0000,0800,1600 03/29 1600 AC 03/30 Sodium Succinate IV 0110 Hydrocortisone 100 MG 0000,0800,1600 03/29 0000 DC 03/29 Sodium Succinate IV 0945 Insulin Aspart 0 TIDAC 03/29 1700 AC SC Insulin Aspart 0 TIDAC 03/28 1700 DC SC Insulin Human Regular 0 Q6 03/29 0851 DC 03/29 SC 1313 Magnesium Sulfate 1 GM Q2H 03/29 0745 DC 03/29 Dextrose/Water 100 ML IV 03/29 1144 1555 Montelukast Sodium 10 MG AT BEDTIME 03/29 2200 AC 03/29 PO 2115 Oseltamivir Phosphate 75 MG BID 03/28 1515 AC 03/29 PO 04/01 2201 2117 Senna/Docusate Sodium 2 TAB QPM 03/28 2200 AC 03/29 PO 2116 Valproate Sodium 1,000 MG 03/29 2000 CAN Sodium Chloride 100 ML IV Valproate Sodium 500 MG DAILY 03/29 1000 DC 03/29 Sodium Chloride 100 ML IV 1208 Results Pertinent Lab/Franco Results: Laboratory Tests 03/29 0845 Chemistry Sodium (137 - 145 mmol/L) 139 Potassium (3.5 - 5.1 mmol/L) 4.1 Chloride (98 - 107 mmol/L) 108 H Carbon Dioxide (22 - 30 mmol/L) 24 Anion Gap (5 - 16) 7 BUN (7 - 17 mg/dL) 17 Creatinine (0.5 - 1.0 mg/dL) 0.7 Estimated GFR (>60 ml/min) > 60 BUN/Creatinine Ratio (7 - 25 %) 24.3 Hematology CBC w Diff MAN DIFF ORDERED WBC (4.8 - 10.8 /CUMM) 9.4 RBC (4.20 - 5.40 /CUMM) 3.63 L Hgb (12.0 - 16.0 G/DL) 12.4 Hct (37 - 47 %) 37.6 MCV (81.0 - 99.0 FL) 103.6 H MCH (27.0 - 31.0 PG) 34.2 H RDW (11.5 - 14.5 %) 18.1 H Plt Count (130 - 400 /CUMM) 190 MPV (7.4 - 10.4 FL) 9.0 Gran % (42.2 - 75.2 %) 86.2 H Lymphocytes % (20.5 - 51.1 %) 10.8 L Monocytes % (1.7 - 9.3 %) 3.0 Eosinophils % (0 - 5 %) 0 Basophils % (0.0 - 2.0 %) 0 L Absolute Granulocytes (1.4 - 6.5 /CUMM) 8.1 H Segmented Neutrophils (42.2 - 75.2 %) 66 Band Neutrophils (0.0 - 5.0 %) 23 H Absolute Lymphocytes (1.2 - 3.4 /CUMM) 1.0 L Lymphocytes (20.5 - 51.1 %) 8 L Monocytes (1.7 - 9.3 %) 3 Absolute Monocytes (0.10 - 0.60 /CUMM) 0.3 Absolute Eosinophils (0.0 - 0.7 /CUMM) 0 Absolute Basophils (0.0 - 0.2 /CUMM) 0 Platelet Estimate (ADEQUATE) VERIFIED BY SMEAR Anisocytosis 1+ Macrocytic Cells 1+ PUBS MCHC (33.0 - 37.0 G/DL) 33.0
[2016-03-30 08:36] VITALS: BP 112/64
--- NOTE | 2016-03-30 08:40 | Patient Discharge Instructions ---
Discharge Instructions General Discharge Information You were seen/treated for: Acute hypoxic respiratory failure due to Influenza A with superimposed pneumonia Sepsis Urinary tract infection Adrenal insufficiency You had these procedures: Swallow evaluation Special Instructions: Please follow with a primary doctor after discharge within 1 week Diet Continue normal diet: No Recommended Diet: Puree and nectar thick diet Additional DIET Information: Avoid aspiration precaution Activity Full Activity/No Limits: No Activity Self Limited: Yes Activity Limited to: Out of Bed to Chair Acute Coronary Syndrome Inclusion Criteria At DC or during hospital stay patient has or had the following: ACS DIAGNOSIS No Discharge Core Measures Meds if any: Prescribed or Continued at Discharge Meds if any: NOT Prescribed or Continued at Discharge Congestive Heart Failure Inclusion Criteria At DC or during hospital stay patient has or had the following: CHF DIAGNOSIS No Discharge Core Measures Meds if any: Prescribed or Continued at Discharge Meds if any: NOT Prescribed or Continued at Discharge Cerebrovascular accident Inclusion Criteria At DC or during hospital stay patient has or had the following: CVA/TIA Diagnosis No Discharge Core Measures Meds if any: Prescribed or Continued at Discharge Meds if any: NOT Prescribed or Continued at Discharge Venous thromboembolism Inclusion Criteria VTE Diagnosis No VTE Type NONE VTE Confirmed by (Test) NONE Discharge Core Measures - Per Current guidelines, there needs to be overlap - treatment for the first 5 days of Warfarin therapy. - If discharged on Warfarin prior to 5 days of - overlap therapy, the patient will need to be - assessed for post discharge needs including - *Post discharge parental anticoagulation - *Warfarin and/or parental anticoagulation education - *Follow up date to check INR post discharge At least 5 days overlap therapy as Inpatient No Meds if any: Prescribed or Continued at Discharge Note: Overlap Therapy is Warfarin and Anticoagulant Meds if any: NOT Prescribed or Continued at Discharge Meds if any: NOT Prescribed or Continued at Discharge
[2016-03-30 08:41] LABS: ABSOLUTE BASOPHIL COUNT 0 /CUMM (0.0-0.2); ABSOLUTE EOSINOPHIL COUNT 0 /CUMM (0.0-0.7); ABSOLUTE GRANULOCYTE CT 7.8 /CUMM (1.4-6.5); ABSOLUTE LYMPH COUNT 1.3 /CUMM (1.2-3.4); ABSOLUTE MONOCYTE COUNT 0.4 /CUMM (0.10-0.60); BASOPHIL % 0.1 % (0.0-2.0); EOSINOPHIL % 0 % (0-5); GRANULOCYTE % 82.3 % (42.2-75.2); HEMATOCRIT 35.3 % (37-47); MEAN CORPUSCULAR HGB 34.1 PG (27.0-31.0); MEAN CORPUSCULAR VOLUME 103.6 FL (81.0-99.0); PLATELET COUNT 196 /CUMM (130-400); RED BLOOD CELL CT 3.41 /CUMM (4.20-5.40); WHITE BLOOD CELL COUNT 9.5 /CUMM (4.8-10.8)
--- NOTE | 2016-03-30 09:01 | Discharge Summary ---
Visit Information Visit Dates Admission Date: 03/28/16 Discharge Date: 04/01/16 Hospital Course Course Attending Physician: SHERIF MITCHELL,OBINNA Chambers MD Primary Care Physician: HARMAN DONATO MD Consulting Request: Consulting Specialty: Endocrinology Hospital Course: 50 yo female with pmh of Down syndrome, developmental disorder, impulse control disorder, adrenal insufficiency (on hydrcortisone & fludrocortisone), severe spinal stenosis, seizure disorder was brought from [facility] due to fever of 103.6F, desaturation 88% on RA, and greenish sputum from today. Per ECF, she started having cough on Monday (3DA) with low grade temperature (99.3F). She came to [facility] on Monday (03/25) due to back pain, and lumbar CT spine CT showed multi-level disc protrusion on L2-5. She was given pain medication and discharged from ED at that time. She is non-verbal at baseline, but able to tolerated po intake with puree diet per ECF. Initial V/S: 97.7F (Tmax 103.4), CO 84 RR 29 BP 90/50 Sat 98% on 2L, general apperance: alert, non-verbal, HEENT: atraumatic, PERRLA, EOM intact, dry mucosa, Neck: supple, no cervical LAD, cardiovascular: regular rate, normal s1/s2, Lung: coarse breathing sound, Abdomen: soft, non-tender abdomen, normal bowel sounds, Ext: no LE edema, symmetrical pulses, unable to follow neurologic exam. Lab: WBC 4.3, lactic acid 1.3, BUN/Cr 24/0.9, UA mod leukocyte esterase, packed WBC, positive influenza A CXR: Findings suggesting developing lower lobe infiltrate most convincing on the right. Continued follow-up is recommended. Patient was admitted to following problem lists; 1. Acute hypoxic repiraoty failure due to Influenza A and superimposed bacterial pneumonia: She was given oxygen support with NC 1-3L, and saturation was maintained > 92%. She was stable on RA from 03/29. She was isolated and treated with po oseltaminir 75mg bid for influenza A. Treatment of pneumonia as below. 2. Sepsis likely secondary to community-acquired pneumonia/UTI: Influenza could be complicated with bacterial infection (from strep pneumoniae/pyogens or S.aureus) with her immunocompromised status on hydrocortisone. 1 dose of IV vanco/ceftazidime were given in ED. IV fluid was given to maintain MAP > 65. Patient was treated with empiric IV ceftriaxone/azithromycin, and her clinical sytmpoms improved. Regarding aspiration precaution, swallow evaluation was done revealing minimal aspiration risk. Puree and nectar thick liquid was recommended. Blood / urine cultures remained negative. Sputum culture was not obtainable. 3. Adrenal insufficiency: Endocrinology consult was obtained. She was given stress dose of IV hydrocortisone and it was tapered down to oral dose. She could continue po hydrocortisone and mineralocorticoid from 04/01. Blood sugar was monitored while she was on IV hydrocortisone. TSH/fT4 were within normal limit. 4. Seizure disorder: We continued po depakote as home dose. She was on seizure precaution, and no seizure acitivity was observed. 5. Chronic pain secondary to spinal stenosis: We continued pain medication per pathway 6. Osteoporosis: We continued calcium carbonate 1250 mg by mouth daily, alendronate 70 mg by mouth every Monday and Vitamin D 1000 units by mouth daily with chronic steroid use. 7. Hyperlipidemia: stable, we continued atorvastatin 20 mg daily. DVT ppx: SC heparin, full code. Allergies: Coded Allergies: NO KNOWN ALLERGIES (06/28/15) Significant Procedures: Swallow evaluation: Puree and thin liquids Pertinent Lab Results: Positive influenza A Disposition Summary Disposition Principal Diagnosis: Acute hypoxic respiratory failure due to Influenza A with superimposed pneumonia Sepsis secondary to CAP/ UTI Adrenal insufficiency Additional Diagnosis: Down syndrome with developmental disorder Seizure disorder Chronic pain secondary to spinal stenosis Osteoporosis HLD Discharge Disposition: SNF Discharge Instructions General Discharge Information Code Status: Full Code Patient's Diet: Puree and nectar thick liquid diet Patient's Activity: Increase as tolerated Out of bed to chair Follow-Up Instructions/Appts: Please follow with a primary doctor after discharge within 1 week Fall / aspiration precaution Medications at Discharge Discharge Medications: Stop taking the following medications: Fludrocortisone Acetate (Fludrocortisone Acetate) 0.1 MG TABLET ORAL Every other day Continue taking these medications: Alendronate Sodium (Fosamax) 70 MG TABLET 1 Tablet ORAL EVERY MONDAY Instructions: in the morning, at least 30 minutes before the first food, beverage, or medication of the day Comments: LAST GIVEN 01/23/16 @1100 Cholecalciferol (Vitamin D3) (Vitamin D) 1,000 UNIT TABLET 1 Tablet ORAL DAILY Comments: LAST GIVEN 01/23/16 @ 1100 Calcium Carbonate (Calcium Carbonate) 600 MG TABLET 2 Tablet ORAL Every night Comments: NOT GIVEN IN HOSPITAL Guaifenesin (Mucinex) 600 MG TAB.ER.12H 1 Tablet ORAL TWICE DAILY as needed for Cough, sputum Comments: NOT GIVEN Montelukast Sodium (Singulair) 10 MG TABLET 1 Tablet ORAL DAILY Comments: PER PT MOM Last Taken: 09/24/15 Time: 0800 Famotidine (Pepcid) 20 MG TABLET 1 Tablet ORAL DAILY Comments: LAST GIVEN 01/23/16 @ 1100 Hydrocortisone (Hydrocortisone) 5 MG TABLET 3 Tablet ORAL Every Morning Qty = 120 Instructions: Reason to Stop at ADM: change to IV Comments: PER PT MOM Last Taken: 09/24/15 Time: 0800 Hydrocortisone (Hydrocortisone) 5 MG TABLET 1 Tablet ORAL Every night Qty = 120 Instructions: Reason to Stop at ADM: change to IV Comments: LAST GIVEN 01/23/16 @ 1100 Lorazepam (Ativan) 0.5 MG TABLET 1 Tablet ORAL Every Morning Days = 30 Instructions: Reason to Stop at ADM: respiratory distress Comments: NOT GIVEN IN HOSPITAL Lorazepam (Ativan) 0.5 MG TABLET 2 Tablet ORAL Every night Days = 30 Instructions: Reason to Stop at ADM: respiratory distress Comments: LAST GIVEN 01/23/16 @ 1100 Atorvastatin Calcium (Atorvastatin Calcium) 20 MG TABLET 1 Tablet ORAL Every night Comments: Last Taken: 04/01/16 Time: 2048 Acetaminophen (Tylenol) 325 MG TABLET 1 Tablet ORAL EVERY 4-6 HOURS NEEDED as needed for PAIN SCALE 1-3 (MILD) Comments: NOT GIVEN Divalproex Sodium (Depakote Sprinkle) 125 MG CAP.SPRINK 4 Capsule ORAL DAILY @8AM Qty = 360 Divalproex Sodium (Depakote) 125 MG TABLET.DR 8 Capsule ORAL 8PM Sennosides/Docusate Sodium (Senna S Tablet) 8.6 MG-50 MG TABLET 2 Tablet ORAL Every night Acetaminophen (Acetaminophen) 650 MG SUPP.RECT 1 SUPPOSITORY RECTALLY EVERY 4 HOURS NEEDED as needed for FEVER > 101 Comments: NOT ICEN IN HOSPITAL Hydrocodone/Acetaminophen (Hydrocodon-Acetaminophen 5-325) 5 MG-325 MG TABLET 1 Tablet ORAL EVERY 8 HOURS NEEDED as needed for PAIN SCALE 4-6 (MODERATE ) Start taking the following new medications: Fludrocortisone Acetate (Fludrocortisone Acetate) 0.1 MG TABLET 0.5 Tablet ORAL DAILY Days = 30 No Refills Instructions: FROM 04/01 WITH PO HYDROCORTISONE Copies To: GINA GORMAN MD, MD, DAVID M.; KINGA MITCHELL,HARMAN Attending MD Review Statement Other Findings: Dr Gorman is the discharging attending. please see his note for more details. Copies To: GINA GORMAN MD, MD, DAVID M.; HARMAN DONATO MD
[2016-03-30] MEDS ORDERED: FLUDROCORTISON0.1 M1 PO (14:09)
[2016-03-30 16:59] VITALS: BP 108/62
[2016-03-31 00:43] VITALS: BP 114/64
--- NOTE | 2016-03-31 07:14 | PN- Housestaff ---
SHARAN MITCHELL,DARRON 03/31/16 0713: Subjective Follow-up For: Influenza Sepsis UTI Adrenal Insufficiency Subjective: Patient seen and examined. She is seen lying upright in bed maintained in bilateral soft upper extremity restraints. She appears to be in no acute distress. Patient is nonverbal at baseline and subjective complaints are unobtainable. Review of systems is unobtainable. No overnight events reported. Review of Systems Constitutional: Reports: see HPI. Objective Last 24 Hrs of Vital Signs/I&O Vital Signs Date Time Temp Pulse Resp B/P Pulse O2 O2 Flow FiO2 Ox Delivery Rate 03/31 0834 97.3 54 18 144/82 94 03/31 0043 97.8 64 18 114/64 90 Room Air 03/30 2000 93 Room Air 03/30 1659 97.6 76 20 108/62 95 03/30 1600 Room Air 03/30 1233 97 Room Air Room Air Intake & Output 03/31 1600 03/31 0800 03/31 0000 Intake Total 1040 1050 Output Total Balance 1040 1050 Intake, IV 800 800 Intake, Oral 240 250 Number 0 1 Bowel Movements Physical Exam General Appearance: No Acute Distress Other Physical Findings: General -well-developed, middle-aged female in no acute distress in bilateral upper extremity soft restraints HEENT - NCAT, PERRL, EOMI, anicteric sclera, perioral crusting with obvious drooling Cardio - S1, S2 w/o murmurs/gallops/rubs Resp -minimal rhonchi heard in right lung keenan, no crackles GI - soft, nontender, nondistended, bowel sounds present Neuro - Awake and alert, CN II - XII grossly intact Extremities - no edema, pulses intact Current Medications: Current Medications Sig/Keerthi Start time Last Medication Dose Route Stop Time Status Admin Acetaminophen 650 MG Q6P PRN 03/28 1445 AC PO Acetaminophen/ 1 TAB Q8P PRN 03/28 1600 AC 03/30 Hydrocodone Bitart PO 1633 Albuterol Sulfate 3 ML Q4P PRN 03/29 1200 AC 03/30 INH 2000 Alendronate Sodium 70 MG QSAT 04/02 0700 AC PO Atorvastatin Calcium 20 MG QPM 03/28 2200 AC 03/30 PO 2108 Azithromycin 500 MG DAILY 03/29 1000 AC 03/30 Dextrose/Water 250 ML IV 0923 Calcium Carbonate 1,250 MG DAILY 03/29 1000 AC 03/30 PO 0923 Ceftriaxone Sodium 1,000 MG DAILY 03/29 1000 AC 03/30 IV 0923 Cholecalciferol 1,000 IU DAILY 03/29 1000 AC 03/30 PO 0923 Dextrose/Sodium 1,000 ML Q10H 03/28 2215 AC 03/31 Chloride IV 0545 Divalproex Sodium 500 MG 8AM 03/30 0800 AC 03/30 PO 0923 Divalproex Sodium 1,000 MG 2000 03/29 2000 AC 03/30 PO 1945 Famotidine 20 MG DAILY 03/29 1000 AC 03/30 PO 0923 Fludrocortisone 50 MCG DAILY 03/30 1400 CAN Acetate PO Fludrocortisone 100 MCG Q48H 03/29 0800 DC Acetate PO Guaifenesin 600 MG BID PRN 03/28 1600 AC 03/30 PO 2108 Heparin Sodium 5,000 UNIT .STK-MED ONE 03/30 1254 DC (Porcine) IV 03/30 1255 Heparin Sodium 5,000 UNIT Q8 03/28 1400 AC 03/31 (Porcine) SC 0545 Hydrocortisone 50 MG DAILY 03/31 1000 AC Sodium Succinate IV 03/31 1001 Hydrocortisone 50 MG Q12 03/30 2200 DC 03/30 Sodium Succinate IV 03/31 0000 2108 Hydrocortisone 50 MG 0000,0800,1600 03/29 1600 DC 03/30 Sodium Succinate IV 0923 Insulin Aspart 0 TIDAC 03/29 1700 AC 03/30 SC 1734 Montelukast Sodium 10 MG AT BEDTIME 03/29 2200 AC 03/30 PO 2108 Oseltamivir Phosphate 75 MG BID 03/28 1515 AC 03/30 PO 04/01 2201 2109 Potassium Chloride 40 MEQ ONCE ONE 03/30 1015 DC 03/30 PO 03/30 1016 1258 Senna/Docusate Sodium 2 TAB QPM 03/28 2200 AC 03/30 PO 2108 Last 24 Hrs of Lab/Franco Results Last 24 Hrs of Labs/Mics: Laboratory Tests 03/31/16 0650: Anion Gap 7, Estimated GFR > 60, BUN/Creatinine Ratio 10.0, CBC w Diff Pending, WBC Pending, RBC Pending, Hgb Pending, Hct Pending, MCV Pending, MCH Pending, RDW Pending, Plt Count Pending, MPV Pending, PUBS MCHC Pending Assessment/Plan Assessment: Patient is still maintained in bilateral upper extremity soft restraints. She is an anticipated discharge to her ECF facility tomorrow on oral antibiotics and Tamiflu. She is to be restarted on her home regimen for her adrenal insufficiency tomorrow with her intravenous steroid taper to conclude today. Influenza A: Patient recently seen in the [place] ED on 03/25/16 for evaluation of back pain where a chest x-ray obtained demonstrated mild diffuse interstitial prominence. Collateral information obtained from the shelter staff determined that patient's symptoms of fever and cough have been present since that same day. Rapid flu test is positive for influenza A. -Acetaminophen 650 mg by mouth every 6 hours as needed for fever or pain 1-3 -Zofran 4 mg IV every 6 hours as needed for nausea -Tessalon Perles as needed for throat pain -Tamiflu 75 mg by mouth twice a day -Guaifenesin 600 mg by mouth twice a day Possible right lower lobe pneumonia: Chest x-ray taken on 03/25/16 demonstrated mild diffuse interstitial prominence. Chest x-ray obtained today is suspicious for a right lower lobe infiltrate. Patient was hospitalized as recently as January for pneumonia. High risk for aspiration concerning her mental status. Patient received 1 dose of vancomycin/ ceftazidime in the ER. -Ceftriaxone 1 g IV daily -Azithromycin 500 mg IV daily History of adrenal insufficiency: Given patient's hemodynamic instability in the ER she was given stress dose steroids for stabilization of her blood pressure. -Hydrocortisone 50 mg IV once today and then discontinue -Restart home steroid regimen tomorrow -Accu-Cheks 3 times a day before meals/at bedtime -NovoLog sliding scale insulin -Endocrinology consult History of Down syndrome/mental retardation: -Depakote 500 mg by mouth daily Osteopenia/osteoporosis: -calcium carbonate 1250 mg by mouth daily -alendronate 70 mg by mouth every Monday -Vitamin D 1000 units by mouth daily Hyperlipidemia-stable, continue atorvastatin 20 mg Pain plan/bowel regimen: -Acetaminophen 650 mg by mouth every 6 hours as needed for pain 1-3 -Vicodin 1 tab by mouth every 8 hours as needed for pain 4-6 -Senokot S 2 tablets by mouth every evening Diet-heart healthy diet DVT prophylaxis-heparin CODE STATUS-full code Problem List: 1. Influenza Pain Ratin Pain Location: None Pain Goal: Remain pain free Pain Plan: As noted in plan Tomorrow's Labs & Rationales: None Consulting Request: Consulting Specialty: Endocrinology OBINNA GORMAN MD 03/31/16 1550: Attending MD Review Statement Attending Statement Attending MD Statement: examined this patient, discuss w/resident/PA/EXTRACTING MACHINE OPERATOR, agreed w/resident/PA/EXTRACTING MACHINE OPERATOR, reviewed EMR data (avail) Attending Assessment/Plan: Clinically improved, continuing treatment for influenza pneumonia and possible UTI, steroid taper, anticipated discharge tomorrow
--- NOTE | 2016-03-31 07:42 | PN- Endocrinology ---
Assessment/Plan Assessment: The patient continues to improve.. Her blood pressure has remained good.. She has many fewer secretions. She is presently on hydrocortisone 50 mg IV every 12 hours. She has been started on a diet. Plan: Suggest give hydrocortisone in the form of Solu-Cortef 50 mg IV just once today. Tomorrow we can switch her to her maintenance which is hydrocortisone 15 mg by mouth in the morning and 5 mg by mouth at around 4 to 5 PM. Tomorrow we can also resume Florinef 0.05 mg daily. Subjective Subjective: Cannot answer questions Objective Last 24 Hrs of Vital Signs/I&O Vital Signs Date Time Temp Pulse Resp B/P Pulse O2 O2 Flow FiO2 Ox Delivery Rate 03/31 0043 97.8 64 18 114/64 90 Room Air 03/30 Room Air 03/30 1659 97.6 76 20 108/62 95 03/30 1600 Room Air 03/30 1233 97 Room Air Room Air 03/30 0836 98.1 57 20 112/64 95 Room Air 03/30 0800 95 Room Air Intake & Output 03/31 0800 03/31 0000 03/30 1600 Intake Total 1040 1050 1280 Output Total Balance 1040 1050 1280 Intake, IV 800 800 800 Intake, Oral 240 250 480 Number 0 1 Bowel Movements Patient 103 lb Weight Vital Signs Date Time Temp Pulse Resp B/P Pulse O2 O2 Flow FiO2 Ox Delivery Rate 03/31 0043 97.8 64 18 114/64 90 Room Air 03/30 Room Air 03/30 1659 97.6 76 20 108/62 95 03/30 1600 Room Air 03/30 1233 97 Room Air Room Air 03/30 0836 98.1 57 20 112/64 95 Room Air 03/30 0800 95 Room Air Intake & Output 03/31 0800 03/31 0000 03/30 1600 Intake Total 1040 1050 1280 Output Total Balance 1040 1050 1280 Intake, IV 800 800 800 Intake, Oral 240 250 480 Number 0 1 Bowel Movements Patient 103 lb Weight Physical Exam General Appearance: alert, awake, comfortable Head: normal appearance Neck: normal inspection Respiratory: normal breath sounds Cardiovascular: regular rate/rhythm Extremities: normal inspection Current Medications: Current Medications Sig/Keerthi Start time Last Medication Dose Route Stop Time Status Admin Acetaminophen 650 MG Q6P PRN 03/28 1445 AC PO Acetaminophen/ 1 TAB Q8P PRN 03/28 1600 AC 03/30 Hydrocodone Bitart PO 1633 Albuterol Sulfate 3 ML Q4P PRN 03/29 1200 AC 03/30 INH 2000 Alendronate Sodium 70 MG QSAT 04/02 0700 AC PO Atorvastatin Calcium 20 MG QPM 03/28 2200 AC 03/30 PO 2108 Azithromycin 500 MG DAILY 03/29 1000 AC 03/30 Dextrose/Water 250 ML IV 0923 Calcium Carbonate 1,250 MG DAILY 03/29 1000 AC 03/30 PO 0923 Ceftriaxone Sodium 1,000 MG DAILY 03/29 1000 AC 03/30 IV 0923 Cholecalciferol 1,000 IU DAILY 03/29 1000 AC 03/30 PO 0923 Dextrose/Sodium 1,000 ML Q10H 03/28 2215 AC 03/31 Chloride IV 0545 Divalproex Sodium 500 MG 8AM 03/30 0800 AC 03/30 PO 0923 Divalproex Sodium 1,000 MG 03/29 2000 AC 03/30 PO 1945 Famotidine 20 MG DAILY 03/29 1000 AC 03/30 PO 0923 Fludrocortisone 50 MCG DAILY 03/30 1400 CAN Acetate PO Fludrocortisone 100 MCG Q48H 03/29 0800 DC Acetate PO Guaifenesin 600 MG BID PRN 03/28 1600 AC 03/30 PO 2108 Heparin Sodium 5,000 UNIT .STK-MED ONE 03/30 1254 DC (Porcine) IV 03/30 1255 Heparin Sodium 5,000 UNIT Q8 03/28 1400 AC 03/31 (Porcine) SC 0545 Hydrocortisone 50 MG DAILY 03/31 1000 AC Sodium Succinate IV 03/31 1001 Hydrocortisone 50 MG Q12 03/30 2200 DC 03/30 Sodium Succinate IV 03/31 0000 2108 Hydrocortisone 50 MG 0000,0800,1600 03/29 1600 DC 03/30 Sodium Succinate IV 0923 Insulin Aspart 0 TIDAC 03/29 1700 AC 03/30 SC 1734 Montelukast Sodium 10 MG AT BEDTIME 03/29 2200 AC 03/30 PO 2108 Oseltamivir Phosphate 75 MG BID 03/28 1515 AC 03/30 PO 04/01 2200 210 Potassium Chloride 40 MEQ ONCE ONE 03/30 1015 DC 03/30 PO 03/30 1016 1258 Senna/Docusate Sodium 2 TAB QPM 03/28 2200 AC 03/30 PO 210
[2016-03-31 08:34] VITALS: BP 144/82
[2016-03-31 09:06] LABS: ABSOLUTE BASOPHIL COUNT 0 /CUMM (0.0-0.2); ABSOLUTE EOSINOPHIL COUNT 0 /CUMM (0.0-0.7); ABSOLUTE GRANULOCYTE CT 5.8 /CUMM (1.4-6.5); ABSOLUTE LYMPH COUNT 1.2 /CUMM (1.2-3.4); ABSOLUTE MONOCYTE COUNT 0.4 /CUMM (0.10-0.60); BASOPHIL % 0.4 % (0.0-2.0); EOSINOPHIL % 0 % (0-5); GRANULOCYTE % 77.7 % (42.2-75.2); HEMATOCRIT 33.5 % (37-47); MEAN CORPUSCULAR HGB 34.1 PG (27.0-31.0); MEAN CORPUSCULAR HGB CONC 33.2 G/DL (33.0-37.0); MEAN CORPUSCULAR VOLUME 102.7 FL (81.0-99.0); MEAN PLATELET VOLUME 9.1 FL (7.4-10.4); PLATELET COUNT 220 /CUMM (130-400); RBC DISTRIBUTION WIDTH 18.4 % (11.5-14.5); RED BLOOD CELL CT 3.26 /CUMM (4.20-5.40); WHITE BLOOD CELL COUNT 7.4 /CUMM (4.8-10.8)
[2016-03-31 15:55] VITALS: BP 134/70
[2016-04-01 00:01] VITALS: BP 130/60
--- NOTE | 2016-04-01 07:08 | PN- Housestaff ---
SHARAN MITCHELL,DARRON 04/01/16 0708: Subjective Follow-up For: Influenza Sepsis UTI Adrenal Insufficiency Subjective: Patient seen and examined. She is seen sitting upright in bed resting comfortably maintained in bilateral soft upper extremity restraints. She appears to be in no acute distress. She is nonverbal at baseline and subjective complaints are not obtainable. Review of systems is unobtainable. No overnight events reported. Review of Systems Constitutional: Reports: see HPI. Objective Last 24 Hrs of Vital Signs/I&O Vital Signs Date Time Temp Pulse Resp B/P Pulse O2 O2 Flow FiO2 Ox Delivery Rate 04/01 0801 98.4 55 20 130/84 94 Room Air 04/01 0001 99.0 62 20 130/60 97 Room Air 04/01 0000 Room Air 03/31 1925 98 Room Air 03/31 1555 99.0 52 19 134/70 95 03/31 1046 92 Room Air Room Air Intake & Output 04/01 1600 04/01 0800 04/01 0000 Intake Total 1050 640 Output Total 0 Balance 1050 640 Intake, IV 800 400 Intake, Oral 250 240 Number 0 0 Bowel Movements Output, Urine 0 Physical Exam General Appearance: Alert, No Acute Distress Other Physical Findings: General -well-developed, middle-aged female in no acute distress in bilateral upper extremity soft restraints HEENT - NCAT, PERRL, EOMI, anicteric sclera, perioral crusting with obvious drooling Cardio - S1, S2 w/o murmurs/gallops/rubs Resp -clear to auscultation bilaterally GI - soft, nontender, nondistended, bowel sounds present Neuro - Awake and alert, CN II - XII grossly intact Extremities - no edema, pulses intact Current Medications: Current Medications Sig/Keerthi Start time Last Medication Dose Route Stop Time Status Admin Acetaminophen 650 MG Q6P PRN 03/28 1445 AC PO Acetaminophen/ 1 TAB Q8P PRN 03/28 1600 AC 03/30 Hydrocodone Bitart PO 1633 Albuterol Sulfate 3 ML Q4P PRN 03/29 1200 AC 03/31 INH 1925 Alendronate Sodium 70 MG QSAT 04/02 0700 AC PO Atorvastatin Calcium 20 MG QPM 03/28 2200 AC 03/31 PO 2049 Azithromycin 500 MG DAILY 03/29 1000 AC 03/31 Dextrose/Water 250 ML IV 0930 Calcium Carbonate 1,250 MG DAILY 03/29 1000 AC 03/31 PO 0930 Ceftriaxone Sodium 1,000 MG DAILY 03/29 1000 AC 03/31 IV 0929 Cholecalciferol 1,000 IU DAILY 03/29 1000 AC 03/31 PO 0930 Dextrose/Sodium 1,000 ML Q10H 03/28 2215 AC 04/01 Chloride IV 0547 Divalproex Sodium 500 MG 8AM 03/30 0800 AC 04/01 PO 0812 Divalproex Sodium 1,000 MG 2000 03/29 2000 AC 03/31 PO 2049 Famotidine 20 MG DAILY 03/29 1000 AC 03/31 PO 0930 Fludrocortisone 50 MCG DAILY 04/01 1000 AC Acetate PO Guaifenesin 600 MG BID PRN 03/28 1600 AC 04/01 PO 0535 Heparin Sodium 5,000 UNIT .STK-MED ONE 03/31 2044 DC (Porcine) IV 03/31 204 Heparin Sodium 5,000 UNIT .STK-MED ONE 03/31 1606 DC (Porcine) IV 03/31 1607 Heparin Sodium 5,000 UNIT Q8 03/28 1400 AC 04/01 (Porcine) SC 0535 Hydrocortisone 5 MG 1700 04/01 1700 AC PO Hydrocortisone 15 MG DAILY 04/01 1000 AC PO Hydrocortisone 50 MG DAILY 03/31 1000 DC 03/31 Sodium Succinate IV 03/31 1001 0929 Insulin Aspart 0 TIDAC 03/29 1700 AC 03/30 SC 1734 Montelukast Sodium 10 MG AT BEDTIME 03/29 2200 AC 03/31 PO 2049 Oseltamivir Phosphate 75 MG BID 03/28 1515 AC 03/31 PO 04/01 2200 204 Senna/Docusate Sodium 2 TAB QPM 03/28 2200 AC 03/31 PO 204 Assessment/Plan Assessment: Patient appears awake and alert today and in no acute distress. She is to be discharged back to her ECF facility today. She completed a 5 day total course of antibiotics and Tamiflu. She is restarted on her normal regimen for her adrenal insufficiency today. Influenza A: Patient recently seen in the [facility] ED on 03/25/16 for evaluation of back pain where a chest x-ray obtained demonstrated mild diffuse interstitial prominence. Collateral information obtained from the longterm staff determined that patient's symptoms of fever and cough have been present since that same day. Rapid flu test is positive for influenza A. -Acetaminophen 650 mg by mouth every 6 hours as needed for fever or pain 1-3 -Zofran 4 mg IV every 6 hours as needed for nausea -Tessalon Perles as needed for throat pain -Tamiflu 75 mg by mouth twice a day -Guaifenesin 600 mg by mouth twice a day Possible right lower lobe pneumonia: Chest x-ray taken on 03/25/16 demonstrated mild diffuse interstitial prominence. Chest x-ray obtained today is suspicious for a right lower lobe infiltrate. Patient was hospitalized as recently as January for pneumonia. High risk for aspiration concerning her mental status. Patient received 1 dose of vancomycin/ ceftazidime in the ER. -Ceftriaxone 1 g IV daily -Azithromycin 500 mg IV daily History of adrenal insufficiency: Given patient's hemodynamic instability in the ER she was given stress dose steroids for stabilization of her blood pressure. -Hydrocortisone 15mg PO Daily -Hydrocortisone 5mg PO at night -Florinet 50mcg PO Daily -Accu-Cheks 3 times a day before meals/at bedtime -NovoLog sliding scale insulin -Endocrinology consult History of Down syndrome/mental retardation: -Depakote 500 mg by mouth daily Osteopenia/osteoporosis: -calcium carbonate 1250 mg by mouth daily -alendronate 70 mg by mouth every Monday -Vitamin D 1000 units by mouth daily Hyperlipidemia-stable, continue atorvastatin 20 mg Pain plan/bowel regimen: -Acetaminophen 650 mg by mouth every 6 hours as needed for pain 1-3 -Vicodin 1 tab by mouth every 8 hours as needed for pain 4-6 -Senokot S 2 tablets by mouth every evening Diet-heart healthy diet DVT prophylaxis-heparin CODE STATUS-full code Problem List: 1. Influenza Pain Ratin Pain Location: None Pain Goal: Remain pain free Pain Plan: As noted in plan Tomorrow's Labs & Rationales: None Consulting Request: Consulting Specialty: Endocrinology OBINNA GORMAN MD 04/01/16 1728: Attending MD Review Statement Attending Statement Attending MD Statement: examined this patient, discuss w/resident/PA/LEAD MILITARY ANALYST, agreed w/resident/PA/[employer] MILITARY ANALYST, reviewed EMR data (avail) Attending Assessment/Plan: Clinically improved, continuing treatment for influenza pneumonia and possible UTI, steroid taper, stable for discharge
--- NOTE | 2016-04-01 07:51 | PN- Endocrinology ---
Assessment/Plan Assessment: The patient continues to improve.. Her blood pressure has remained good.. She has many fewer secretions. The patient will begin today maintenance hydrocortisone in the form of 15 mg before breakfast daily and 5 mg around 5 PM. It is desirable to give the first dose of hydrocortisone early in the morning at a time when the patient would normally have high levels if she had normally functioning adrenal glands. Florinef also be restarted at a dose of 50 g daily. Plan: Begin maintenance therapy for adrenal insufficiency as mentioned above. Continue to monitor the patient's blood pressure. Subjective Subjective: Cannot answer questions Objective Last 24 Hrs of Vital Signs/I&O Vital Signs Date Time Temp Pulse Resp B/P Pulse O2 O2 Flow FiO2 Ox Delivery Rate 04/01 0001 99.0 62 20 130/60 97 Room Air 04/01 0000 Room Air 03/31 1924 98 Room Air 03/31 1555 99.0 52 19 134/70 95 03/31 1046 92 Room Air Room Air 03/31 0834 97.3 54 18 144/82 94 03/31 0800 95 Room Air Room Air Intake & Output 04/01 0800 04/01 0000 03/31 1600 Intake Total 6795 260 1002 Output Total 0 Balance 5984 392 6907 Intake, IV 800 400 600 Intake, Oral 250 240 600 Number 0 0 Bowel Movements Output, Urine 0 Vital Signs Date Time Temp Pulse Resp B/P Pulse O2 O2 Flow FiO2 Ox Delivery Rate 04/01 0001 99.0 62 20 130/60 97 Room Air 04/01 0000 Room Air 03/31 1925 98 Room Air 03/31 1555 99.0 52 19 134/70 95 03/31 1046 92 Room Air Room Air 03/31 0834 97.3 54 18 144/82 94 03/31 0800 95 Room Air Room Air Intake & Output 04/01 0800 04/01 0000 03/31 1600 Intake Total 0217 319 2300 Output Total 0 Balance 2856 539 0121 Intake, IV 800 400 600 Intake, Oral 250 240 600 Number 0 0 Bowel Movements Output, Urine 0 Physical Exam General Appearance: alert, awake, comfortable Head: normal appearance Neck: normal inspection Respiratory: no respiratory distress Cardiovascular: regular rate/rhythm Extremities: normal inspection Current Medications: Current Medications Sig/Keerthi Start time Last Medication Dose Route Stop Time Status Admin Acetaminophen 650 MG Q6P PRN 03/28 1445 AC PO Acetaminophen/ 1 TAB Q8P PRN 03/28 1600 AC 03/30 Hydrocodone Bitart PO 1633 Albuterol Sulfate 3 ML Q4P PRN 03/29 1200 AC 03/31 INH 1925 Alendronate Sodium 70 MG QSAT 04/02 0700 AC PO Atorvastatin Calcium 20 MG QPM 03/28 2200 AC 03/31 PO 2049 Azithromycin 500 MG DAILY 03/29 1000 AC 03/31 Dextrose/Water 250 ML IV 0930 Calcium Carbonate 1,250 MG DAILY 03/29 1000 AC 03/31 PO 0930 Ceftriaxone Sodium 1,000 MG DAILY 03/29 1000 AC 03/31 IV 0929 Cholecalciferol 1,000 IU DAILY 03/29 1000 AC 03/31 PO 0930 Dextrose/Sodium 1,000 ML Q10H 03/28 2215 AC 04/01 Chloride IV 0547 Divalproex Sodium 500 MG 8AM 03/30 0800 AC 03/31 PO 0930 Divalproex Sodium 1,000 MG 2000 03/29 2000 AC 03/31 PO 2049 Famotidine 20 MG DAILY 03/29 1000 AC 03/31 PO 0930 Fludrocortisone 50 MCG DAILY 04/01 1000 AC Acetate PO Guaifenesin 600 MG BID PRN 03/28 1600 AC 04/01 PO 0535 Heparin Sodium 5,000 UNIT .STK-MED ONE 03/31 2044 DC (Porcine) IV 03/31 2045 Heparin Sodium 5,000 UNIT .STK-MED ONE 03/31 1606 DC (Porcine) IV 03/31 1607 Heparin Sodium 5,000 UNIT Q8 03/28 1400 AC 04/01 (Porcine) SC 0535 Hydrocortisone 5 MG 1700 04/01 1700 AC PO Hydrocortisone 15 MG DAILY 04/01 1000 AC PO Hydrocortisone 50 MG DAILY 03/31 1000 DC 03/31 Sodium Succinate IV 03/31 1001 0929 Insulin Aspart 0 TIDAC 03/29 1700 AC 03/30 SC 1734 Montelukast Sodium 10 MG AT BEDTIME 03/29 2200 AC 03/31 PO 2049 Oseltamivir Phosphate 75 MG BID 03/28 1515 AC 03/31 PO 04/01 220 2049 Senna/Docusate Sodium 2 TAB QPM 03/28 2200 AC 03/31 PO 204
[2016-04-01 08:01] VITALS: BP 130/84
[2016-04-01 16:21] VITALS: BP 130/84
[2016-04-01 16:25] VITALS: BP 120/72
== END 2016-04-01 17:55 | DRG 871 ==
LOC: ENRESERVDT → ENRESERVTM → ERH 08:58 → ERHI 13:35 → 2NB 13:35 → ENPENDDIS 13:35 → ERHI 14:35 → 2NB 20:46
PROVIDERS: Internal Medicine; Internal Medicine Interventional Cardiology; Physician Assistant; ADMIT Internal Medicine
DX: A41.9 Sepsis, unspecified organism (principal); J09.X1 Influenza due to identified novel influenza A virus with pneumonia; R56.9 Unspecified convulsions; E27.49 Other adrenocortical insufficiency; Q90.9 Down syndrome, unspecified; F79 Unspecified intellectual disabilities; F63.9 Impulse disorder, unspecified; G89.29 Other chronic pain; E78.5 Hyperlipidemia, unspecified; M81.0 Age-related osteoporosis without current pathological fracture
CPT/HCPCS: 2NBP; 36415; 81001; 81003; 82436; 87040; 87070; 87086; 87804; 87804-59; 93005; 93010; 96361; 96365; 96374; 96375; 99291; J0131; J0456; J0696; J0713; J1644; J1720; J3370; J7040; J7042; J7060

== ENCOUNTER 2016-07-21 17:57 | Emergency (ER) | payer OTHER, MEDICARE ==
[~2016-07-21] VITALS: Ht 121.9 cm; Wt 47.2 kg
[~2016-07-21 17:57] MED LIST changes: +ACETAMINOPHEN650 M5 PR; +HYDROCODON-ACE1 EAC2 PO
[2016-07-21 18:06] VITALS: BP 166/98
--- NOTE | 2016-07-21 21:08 | ED UPPER/LOWER EXTREMITY COMPL ---
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 Exam Limitations: physical impairment Vital Signs & Intake/Output Vital Signs & Intake/Output Vital Signs Date Time Temp Pulse Resp B/P B/P Pulse O2 O2 Flow FiO2 Mean Ox Delivery Rate 07/21 1806 98.7 79 16 166/98 93 Room Air Allergies Coded Allergies: warfarin (From COUMADIN) (UNKNOWN 07/21/16) Uncoded Allergies: SILK TAPE (BLISTERS 07/21/16) Reconcile Medications Acetaminophen (Tylenol) 325 MG TABLET 1 TAB PO Q4-6 PRN PRN PAIN SCALE 1-3 ( MILD) (Reported) Acetaminophen 650 MG SUPP.RECT 1 SUPP MD Q4 HRS NEEDED PRN FEVER > 101 ( Reported) Alendronate Sodium (Fosamax) 70 MG TABLET 1 TAB PO QSAT OSTEOPOROSIS ( Reported) in the morning, at least 30 minutes before the first food, beverage, or medication of the day Atorvastatin Calcium 20 MG TABLET 1 TAB PO QPM HIGH CHOLESTROL (Reported) Calcium Carbonate 600 MG TABLET 2 TAB PO QPM SUPPLEMENT (Reported) Cephalexin (Keflex) 500 MG CAPSULE 1 CAP PO BID PRESSURE ULCER Cholecalciferol (Vitamin D3) (Vitamin D) 1,000 UNIT TABLET 1 TAB PO DAILY SUPPLEMENT (Reported) Divalproex Sodium (Depakote Sprinkle) 125 MG CAP.SPRINK 4 CAP PO 8AM SEIZURES (Reported) Divalproex Sodium (Depakote) 125 MG TABLET.DR 8 CAP PO 8PM SEIZURES (Reported ) Famotidine (Pepcid) 20 MG TABLET 1 TAB PO DAILY HEARTBURN (Reported) Fludrocortisone Acetate 0.1 MG TABLET 0.5 TAB PO DAILY ADRENAL INSUFFICIENCY FROM 04/01 WITH PO HYDROCORTISONE Guaifenesin (Mucinex) 600 MG TAB.ER.12H 1 TAB PO BID PRN Cough, sputum ( Reported) Hydrocodone/Acetaminophen (Hydrocodon-Acetaminophen 5-325) 5 MG-325 MG TABLET 1 TAB PO Q8P PRN PAIN SCALE 4-6 (MODERATE) (Reported) Hydrocortisone 5 MG TABLET 3 TAB PO QAM HYPOALDOSTRONISM (Reported) Reason to Stop at ADM: change to IV Hydrocortisone 5 MG TABLET 1 TAB PO QPM HYPOALDOSTRONISM (Reported) Reason to Stop at ADM: change to IV Lorazepam (Ativan) 0.5 MG TABLET 1 TAB PO QAM anxiety (Reported) Reason to Stop at ADM: respiratory distress Lorazepam (Ativan) 0.5 MG TABLET 2 TAB PO QPM anxiety (Reported) Reason to Stop at ADM: respiratory distress Montelukast Sodium (Singulair) 10 MG TABLET 1 TAB PO DAILY ASTHMA (Reported) Sennosides/Docusate Sodium (Senna S Tablet) 8.6 MG-50 MG TABLET 2 TAB PO QPM STOOL (Reported) Triage Note: PT HAS PRESSURE ULCERS TO RIGHT FOOT. PT ALSO HAS BILAT LOWER EXT. EDEMA. PT WENT TO WALK IN AND THEY THEY POPPED HER BLISTERS WENT IN FOR RE CHECK TODAY AND WAS TOLD TO COME TO ED BECAUSE THEY ARE GETTING WORSE. PT HAS DOWNS SYNDROME Triage Nurses Notes Reviewed? yes Onset: Gradual Duration: constant Timing: recent history Severity: moderate Severity Numbers: 5 Method of Injury: unknown HPI: Patient is a 50-year-old female with past medical history of Down syndrome who presents emergency room with caregivers for concerns of a 6 day history of blisters to the right foot in 3 locations. There were initially seen that day by urgent care facility which the provider did "pop" the blister TO 2 OF THE regions Caregivers also state the patient has a chronic history of lower extremity edema with a received outpatient ultrasound Doppler of the lower extremity today in which there was no signs of DVT. Patient to follow up with urgent care facility today and was positive presents to emergency with concerns of infection. It is noted through patient's transfer paperwork that they were concerned of 3 areas of stage III pressure ulcer with Silvadene and bacitracin has been applied. No concern at this time of fevers shortness of breath or cough. No active bleeding no discharge (VIKAS PANIAGUA) Past History Travel History Traveled to [place] past 21 day No Medical History Any Pertinent Medical History? 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: MITRAL VALVE PROLAPSE HYPOTENSION Respiratory: NONE Gastrointestinal: NO TEETH Hepatic: NONE Renal: urinary incontinence Musculoskeletal: osteoarthritis, osteoporosis, ?L1-L5 INJURY Psychiatric: NONE Endocrine: NONE Blood Disorders: anemia Cancer(s): NONE MAINTENANCE AIDE/Reproductive: NONE History of MRSA: No History of VRE: No History of CDIFF: No Surgical History Surgical History: non-contributory Psychosocial History Who do you live with Family Services at Home Home Health Aide What is your primary language Italian Tobacco Use: Never used ETOH Use: denies use Illicit Drug Use: denies illicit drug use Family History Family History, If Any: Relation not specified for: Family history unobtainable Hx Contributory? No (VIKAS PANIAGUA) Review of Systems Review of Systems Constitutional: Reports: no symptoms. EENTM: Reports: no symptoms. Respiratory: Reports: no symptoms. Cardiovascular: Reports: see HPI, peripheral edema. Gastrointestinal/Abdominal: Reports: no symptoms. Genitourinary: Reports: no symptoms. Musculoskeletal: Reports: no symptoms. Skin: Reports: see HPI. Neurological/Psychological: Reports: no symptoms. Hematologic/Endocrine: Reports: no symptoms. Immunological: Reports: no symptoms. All Other Systems: Reviewed and Negative (VIKAS PANIAGUA) Physical Exam Physical Exam General Appearance: no apparent distress, alert, comfortable Neurologic/Tendon: normal sensation, normal motor functions, normal tendon functions, responds to pain, no evidence tendon injury, no pulse deficit Skin: warm/dry Comments: Well-developed well-nourished person in no acute distress HEENT: Normal EENT exam Neck: Supple, no lymphadenopathy, normal range of motion without pain or tenderness Back: Nontender, no CVA tenderness. Cardiovascular: Regular rate and rhythms no murmurs rubs or gallops, normal JVP Respiratory: Chest nontender. No respiratory distress.breath sounds clear to auscultation bilaterally Abdomen: Soft, nontender nondistended, no appreciable organomegaly. Normal bowel sounds. No ascites Extremity: Bilateral lower extremity nonpitting +2 edema, no calf tenderness to palpation, normal and equal pulses. Neuro: Alert , motor sensory normal, Skin: No appreciable rash on exposed skin, skin is warm and dry. Psych: Mood and affect is normal, memory and judgment is normal. Diagram Feet Left/Right 1) Noted 2.5 cm in diameter superficial skin ulcer noted with no active bleeding no surrounding discharge no surrounding warmth erythema 2) X 2 3 mm blister with no surrounding erythema no warmth noted tenderness no active discharge 3) NOTED X2 3 mm skin blisters noted with no surrounding erythema no warmth no active discharge 4) Please disregard this note patient ON #2 5) Noted 3 cm in length superficial skin ulcer No surrounding erythema no warmth no discharge (VIKAS PANIAGUA) Progress Differential Diagnosis: arterial insufficiency, compartment syndrome, contusion, dislocation, DVT, fracture, gout, septic arthritis, sprain, tendon injury Plan of Care: Orders Procedure Date/time Status Consistent Carbohydrate 1 07/22 B Active COMPREHENSIVE METABOLIC PANEL 07/21 2112 Complete CBC WITHOUT DIFFERENTIAL 07/21 2112 Complete Laboratory Tests 07/21/16 2204: Anion Gap 10, Estimated GFR > 60, BUN/Creatinine Ratio 26.3 H, Glucose 125 H, Calcium 8.2 L, Total Bilirubin 0.3, AST 23, ALT 26, Alkaline Phosphatase 57, Total Protein 6.3, Albumin 2.9 L, Globulin 3.4, Albumin/Globulin Ratio 0.9 L, CBC w Diff NO MAN DIFF REQ, RBC 3.56 L, MCV 103.7 H, MCH 33.8 H, RDW 18.7 H, MPV 9.4, Gran % 58.7, Lymphocytes % 31.2, Monocytes % 9.6 H, Eosinophils % 0.1, Basophils % 0.4, Absolute Granulocytes 3.2, Absolute Lymphocytes 1.7, Absolute Monocytes 0.5, Absolute Eosinophils 0, Absolute Basophils 0, PUBS MCHC 32.7 L On initial examination there is minimal suspicion of surrounding infection No concerns of osteomyelitis no active discharge no surrounding erythema no warmth The open ulcers to the right foot were treated with bacitracin Telfa pad and Kerlix. Blood work was unremarkable. Patient has follow-up appointment established next week for wound care follow-up. I instructed caregivers wound dressing changes once a day and to observe for signs infection and if concerning THEY WERE INSTRUCTED TO return to emergency room they will comply (ANTHONY ALCARAZ,VIKAS) Comments: PATIENT: MADDIE JANSEN PRESENT AGE: 50 PATIENT ACCOUNT NO: [id number] : 63 [facility] ORDERING PHYSICIAN: MIGUEL MURRIETA MD SERVICE DATE: 07/21/16748 EXAM TYPE: US - US-EXT BILAT VENOUS DOPPLER EXAMINATION: BILATERAL LOWER EXTREMITY DEEP VENOUS ULTRASOUND CLINICAL INFORMATION: Bilateral lower extremity pain and swelling. COMPARISON: Bilateral lower extremity DVT study 07/04/2013 TECHNIQUE: Duplex Doppler imaging with compression maneuvers were performed of the bilateral lower extremity deep venous systems. FINDINGS: The bilateral visualized common femoral, femoral and popliteal veins demonstrate normal compressibility and color flow without evidence of venous thrombosis. Visualized portions of the bilateral calf veins demonstrate normal color fill-in suggesting patency. There is no evidence of a Bergeron's cyst. IMPRESSION: No evidence of deep venous thrombosis involving the bilateral lower extremities. DICTATED BY: TANMAY TERRELL MD DATE/TIME DICTATED:07/21/161417 (VIKAS PANIAGUA) Departure Departure Disposition: HOME OR SELF CARE Condition: Stable Clinical Impression Primary Impression: Pressure ulcer of right foot Secondary Impressions: Leg edema Referrals: HARMAN DONATO MD (PCP/Family) Additional Instructions: As discussed please follow-up with wound care for further evaluation treatment as YOU HAVE AN appointment next week. Begin to change the dressings once a day with the extra bandages provided to the emergency room. Begin the prescription of Keflex for infection prevention. If you note worsening symptoms such as redness, pain, swelling, discharge or any new concerning symptom return to the emergency room. Departure Forms: Customer Survey General Discharge Information Prescriptions: Current Visit Scripts Cephalexin (Keflex) 1 CAP PO BID #14 CAP (VIKAS PANIAGUA) PA/TERRITORY SALES PROFESSIONAL Co-Sign Statement Statement: ED Attending supervision documentation- I saw and evaluated the patient. I have also reviewed all the pertinent lab results and diagnostic results. I agree with the findings and the plan of care as documented in the PA's/TERRITORY SALES PROFESSIONAL's documentation. x I have reviewed the ED Record and agree with the PA's/TERRITORY SALES PROFESSIONAL's documentation. [] Additions or exceptions (if any) to the PAs/TERRITORY SALES PROFESSIONAL's note and plan are summarized below: [] (SAMMY MITCHELL,MAGDALENA)
[2016-07-21 22:09] LABS: ABSOLUTE BASOPHIL COUNT 0 /CUMM (0.0-0.2); ABSOLUTE EOSINOPHIL COUNT 0 /CUMM (0.0-0.7); ABSOLUTE GRANULOCYTE CT 3.2 /CUMM (1.4-6.5); ABSOLUTE LYMPH COUNT 1.7 /CUMM (1.2-3.4); ABSOLUTE MONOCYTE COUNT 0.5 /CUMM (0.10-0.60); BASOPHIL % 0.4 % (0.0-2.0); EOSINOPHIL % 0.1 % (0-5); GRANULOCYTE % 58.7 % (42.2-75.2); MEAN CORPUSCULAR HGB 33.8 PG (27.0-31.0); MEAN CORPUSCULAR HGB CONC 32.7 G/DL (33.0-37.0); MEAN CORPUSCULAR VOLUME 103.7 FL (81.0-99.0); MEAN PLATELET VOLUME 9.4 FL (7.4-10.4); PLATELET COUNT 253 /CUMM (130-400); RBC DISTRIBUTION WIDTH 18.7 % (11.5-14.5); RED BLOOD CELL CT 3.56 /CUMM (4.20-5.40); WHITE BLOOD CELL COUNT 5.4 /CUMM (4.8-10.8)
[2016-07-21] MEDS ORDERED: KEFLEX500 M1 PO (22:49)
== END 2016-07-21 23:08 ==
LOC: ERH 17:57
PROVIDERS: Physician Assistant
DX: L89.899 Pressure ulcer of other site, unspecified stage (principal); R60.9 Edema, unspecified
CPT/HCPCS: 93970

== ENCOUNTER 2016-08-01 17:13 | Emergency (ER) | payer OTHER, MEDICARE ==
[~2016-08-01 17:13] MED LIST changes: +KEFLEX500 M1 PO
--- NOTE | 2016-08-01 18:40 | ED ANKLE/FOOT INJURY COMPLAINT ---
History of Present Illness General Chief Complaint: Lower Extremity Problems Stated Complaint: RIGHT FOOT WOUND TURRNING BLACK Source: patient, old records, auditing coder Exam Limitations: mr Vital Signs & Intake/Output Vital Signs & Intake/Output Vital Signs Date Time Temp Pulse Resp B/P B/P Pulse O2 O2 Flow FiO2 Mean Ox Delivery Rate 08/01 1933 98.0 79 18 165/60 97 Room Air 08/01 1925 97 08/01 1727 97.0 101 20 116/81 98 Room Air ED Intake and Output 08/02 0000 08/01 1200 Intake Total 340 Output Total Balance 340 Intake, Oral 340 Patient 102 lb Weight Weight Estimated Measurement Method Allergies Coded Allergies: warfarin (From COUMADIN) (UNKNOWN 07/21/16) Uncoded Allergies: SILK TAPE (BLISTERS 07/21/16) Reconcile Medications Acetaminophen (Tylenol) 325 MG TABLET 1 TAB PO Q4-6 PRN PRN PAIN SCALE 1-3 ( MILD) (Reported) Acetaminophen 650 MG SUPP.RECT 1 SUPP RI Q4 HRS NEEDED PRN FEVER > 101 ( Reported) Alendronate Sodium (Fosamax) 70 MG TABLET 1 TAB PO QSAT OSTEOPOROSIS ( Reported) in the morning, at least 30 minutes before the first food, beverage, or medication of the day Atorvastatin Calcium 20 MG TABLET 1 TAB PO QPM HIGH CHOLESTROL (Reported) Calcium (Elemental-Fr Calcarb) (Calcium Carbonate) 600 MG CALCIUM (1,500 MG) TABLET 1,200 MG PO QHS SUPPLEMENET (Reported) Calcium Carbonate 600 MG TABLET 2 TAB PO QPM SUPPLEMENT (Reported) Cephalexin (Keflex) 500 MG CAPSULE 1 CAP PO BID PRESSURE ULCER Cholecalciferol (Vitamin D3) (Vitamin D) 1,000 UNIT TABLET 1 TAB PO DAILY SUPPLEMENT (Reported) Cholecalciferol (Vitamin D3) (Vitamin D3) 1,000 UNIT CAPSULE 1 CAP PO DAILY SUPPLEMENT (Reported) Dextran 70/Hypromellose (Artificial Tears) 1 EACH DROPERETTE 1 GTT OU DAILY DRY EYE (Reported) Divalproex Sodium (Depakote Sprinkle) 125 MG CAP.SPRINK 4 CAP PO 8AM SEIZURES (Reported) Divalproex Sodium (Depakote) 125 MG TABLET.DR 875 MG PO 8PM SEIZURES ( Reported) Famotidine (Pepcid) 20 MG TABLET 1 TAB PO DAILY HEARTBURN (Reported) Fludrocortisone Acetate 0.1 MG TABLET 0.5 TAB PO DAILY ADRENAL INSUFFICIENCY FROM 04/01 WITH PO HYDROCORTISONE Furosemide 20 MG TABLET 1 TAB PO QAM EDEMA (Reported) Hydrocortisone 5 MG TABLET 3 TAB PO QAM HYPOALDOSTRONISM (Reported) Hydrocortisone 5 MG TABLET 1 TAB PO QPM HYPOALDOSTRONISM (Reported) Montelukast Sodium (Singulair) 10 MG TABLET 1 TAB PO DAILY ASTHMA (Reported) Sennosides/Docusate Sodium (Senna S Tablet) 8.6 MG-50 MG TABLET 2 TAB PO QPM STOOL (Reported) Triage Note: PT TO ED FROM [facility] WITH [employer] CUTTING MACHINE OPERATOR FOR C/O ? NECROTIC AREA TO OUTER ASPECT OF RIGHT FOOT. [facility] STAFF NOTICED TODAY THAT SIDE OF R FOOT WAS BLACK. Triage Nurses Notes Reviewed? yes Occurred: just prior to arrival Duration: day(s): (1), constant Timing: recent history Severity: mild Severity Numbers: 5 Pain/Injury Location: Right: Foot. Method of Injury: unknown No Modifying Factors: none Associated Symptoms: DENIES HPI: 50 year old female with Down syndrome, developmental disorder, impulse control disorder, adrenal insufficiency (on hydrcortisone & fludrocortisone), severe spinal stenosis, seizure disorder presents to ER with [facility] auditing coder for wound check. She was seen here last week for blisters to her right foot at which time she had a negative workup including blood work and ultrasound. The auditing coder at the [facility] states that she noticed today that the 1 site where the blister previously was has appeared black today. Patient normally does not ambulate on her feet gets around with a wheelchair. She has had no complaints no fever no chills no discharge from the wound. She is being followed by the wound care center, the other blisters around her feet have since improved (VIKAS LAMA) Past History Travel History Traveled to [place] past 21 day No Medical History Any Pertinent Medical History? 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: MITRAL VALVE PROLAPSE HYPOTENSION Respiratory: NONE Gastrointestinal: NO TEETH Hepatic: NONE Renal: urinary incontinence Musculoskeletal: osteoarthritis, osteoporosis, ?L1-L5 INJURY Psychiatric: NONE Endocrine: NONE Blood Disorders: anemia Cancer(s): NONE CROSS ROLLER/Reproductive: NONE History of MRSA: No History of VRE: No History of CDIFF: No Surgical History Surgical History: non-contributory Psychosocial History Who do you live with Family Services at Home Home Health Aide What is your primary language Malaysian Tobacco Use: Never used ETOH Use: denies use Illicit Drug Use: denies illicit drug use Family History Family History, If Any: Relation not specified for: Family history unobtainable Hx Contributory? No (VIKAS LAMA) Review of Systems Review of Systems Constitutional: Reports: see HPI. All Other Systems: Reviewed and Negative Comments Review of systems: Limited and is obtained from the [facility] auditing coder. Constitutional, no chills no fever, no malaise HEENT: No visual changes no sore throat no congestion Cardiovascular: No chest pain , no palpitation Skin: SEE HPI Respiratory: No dyspnea no cough no sputum GI: No nausea no vomiting, no diarrhea, Muscle skeletal: No joint pain, no joint swelling, no back pain, no neck pain, Neurologic: No numbness no headache Psych: No stress Heme/endocrine: No bruising no bleeding Immunology: No lymphadenopathy (VIKAS LAMA) Physical Exam Physical Exam General Appearance: well developed/nourished, alert, awake Leg/Knee/Thigh Left: normal range of motion Comments: Well-developed well-nourished patient in no apparent distress. HEENT: Atraumatic, extraocular motion intact Neck: Supple, FROM Back: FROM Cardiovascular: Regular rate and rhythms no murmurs rubs or gallops, Respiratory: Chest nontender.There were no bony deformities, no asymmetry. No respiratory distress. Patient speaking in full complete sentences. Breath sounds clear to auscultation bilaterally: NO W/R/R Upper Extremities: full range of motion Hip/Pelvis: Atraumatic/Stable. FROM. Knee: Atraumatic/stable. FROM. No joint swelling, no effusion. No laxity. No pain with ROM Leg: Atraumatic. Nontender. No edema, 5 out of 5 strength in the lower extremity, normal dorsiflexion of great toe bilaterally, gross sensation is intact, patellar tendon reflex 2+ bilaterally. Ankle/Foot: 3 mm HEALING blister with central area of ecchymosis to the distal lateral r foot over the r 5th metatarsl, no eschar, with no surrounding erythema no warmth noted tenderness no active discharge there are healing blisters noted to the heel and proximal medial foot FROM. No swelling, no effusion. No laxity on exam Pulses: Normal/equal DP/PT pulses bilaterally. Brisk cap refill Neuro: awake, alert, and oriented to person, place and time. There were no obvious focal neurologic abnormalities. Skin: Warm & dry;No appreciable rash on exposed skin Psych: Mood affect normal, normal memory normal judgment. (MURALI ALCARAZ,VIKAS) Progress Differential Diagnosis: arterial insufficiency, cellulitis, septic arthritis, gout, fracture, sprain, contusion, compartmental syndrome, osteomyelitis Plan of Care: Orders Procedure Date/time Status XRY-FOOT COMPLETE, RIGHT 08/01 1844 Active xray ordered, old records reviewed I discussed with the patient auditing coder at length all of their results. I had an extensive conversation regarding need for close follow up with their primary care physician/wound care this week as well as return precautions. I answered all of their questions, they feel comfortable with the plan and follow-up care. (MURALI ALCARAZ,VIKAS) Diagnostic Imaging: Viewed by Me: Radiology Read. Discussed w/RAD: Radiology Read. Radiology Impression: PATIENT: MADIDE JANSEN PRESENT AGE: 50 PATIENT ACCOUNT NO: [id number] : 63 LOCATION: [facility] ORDERING PHYSICIAN: VIKAS ALCARAZ SERVICE DATE: 08/01/16 EXAM TYPE: RAD - XRY- FOOT COMPLETE, R EXAMINATION: XR FOOT, RIGHT CLINICAL INFORMATION: Necrotic wound distal right foot. COMPARISON: No relevant prior studies are available for comparison. TECHNIQUE: AP, lateral, and oblique views of the right foot. FINDINGS: No osseous erosion or periosteal reaction, specifically in the area indicated by the marker. No fracture or dislocation. Mild 1st metatarsophalangeal hallux valgus. No abnormal soft tissue calcification. Prominent circumferential soft tissue swelling. No radiopaque foreign body. IMPRESSION: 1. Prominent circumferential soft tissue swelling. No radiopaque foreign body. No osseous erosion or periosteal reaction in the region indicated by the marker. If there is persistent clinical concern for osteomyelitis, a nuclear medicine bone scan or MRI could help further evaluate. 2. Mild 1st metatarsophalangeal hallux valgus. DICTATED BY: SOM ESPITIA MD DATE/TIME DICTATED:08/01/161931 CURB SETTER:ANAHI DATE/TIME TRANSCRIBED:1931 CONFIDENTIAL, DO NOT COPY WITHOUT APPROPRIATE AUTHORIZATION. < Electronically signed in Other Vendor System> SIGNED BY: SOM ESPITIA MD 08/01/161938 (VIKAS LAMA) Departure Departure Time of Disposition: 1954 Disposition: HOME OR SELF CARE Condition: Stable Clinical Impression Primary Impression: Wound eschar of foot Referrals: HARMAN DONATO MD (PCP/Family) Departure Forms: Customer Survey General Discharge Information (VIKAS LAMA) PA/MUSEUM EXHIBIT DESIGNER Co-Sign Statement Statement: ED Attending supervision documentation- [] I saw and evaluated the patient. I have also reviewed all the pertinent lab results and diagnostic results. I agree with the findings and the plan of care as documented in the PA's/MUSEUM EXHIBIT DESIGNER's documentation. [x] I have reviewed the ED Record and agree with the PA's/MUSEUM EXHIBIT DESIGNER's documentation. [] Additions or exceptions (if any) to the PAs/MUSEUM EXHIBIT DESIGNER's note and plan are summarized below: [] (BALA MITCHELL,ABA Murphy)
[2016-08-01] MEDS ORDERED: FUROSEMIDE20 M1 PO (18:57)
[2016-08-01] MEDS ORDERED: ARTIFICIAL TEA1 EACH OU (18:57)
[2016-08-01] MEDS ORDERED: CALCIUM CARBON600 M1 PO (18:58)
[2016-08-01] MEDS ORDERED: VITAMIN D31000 UNI1 PO (18:58)
[2016-08-01 19:33] VITALS: BP 165/60
--- NOTE | 2016-08-01 19:39 | RADIOLOGY REPORT ---
EXAMINATION: XR FOOT, RIGHT CLINICAL INFORMATION: Necrotic wound distal right foot. COMPARISON: No relevant prior studies are available for comparison. TECHNIQUE: AP, lateral, and oblique views of the right foot. FINDINGS: No osseous erosion or periosteal reaction, specifically in the area indicated by the marker. No fracture or dislocation. Mild 1st metatarsophalangeal hallux valgus. No abnormal soft tissue calcification. Prominent circumferential soft tissue swelling. No radiopaque foreign body. IMPRESSION: 1. Prominent circumferential soft tissue swelling. No radiopaque foreign body. No osseous erosion or periosteal reaction in the region indicated by the marker. If there is persistent clinical concern for osteomyelitis, a nuclear medicine bone scan or MRI could help further evaluate. 2. Mild 1st metatarsophalangeal hallux valgus.
== END 2016-08-01 19:56 ==
LOC: ERH 17:13
DX: S91.301A Unspecified open wound, right foot, initial encounter (principal); X58.XXXA Exposure to other specified factors, initial encounter; Y92.9 Unspecified place or not applicable; Y93.9 Activity, unspecified
CPT/HCPCS: 73630-RT

== ENCOUNTER 2016-09-29 14:42 | Emergency (ER) | payer OTHER, MEDICARE ==
[~2016-09-29] VITALS: Ht 152.4 cm; Wt 63.5 kg
[~2016-09-29 14:42] MED LIST changes: +ARTIFICIAL TEA1 EACH OU; +CALCIUM CARBON600 M1 PO; +FUROSEMIDE20 M1 PO; +VITAMIN D31000 UNI1 PO
--- NOTE | 2016-09-29 14:46 | ED GENERAL ADULT ---
History of Present Illness General Chief Complaint: General Adult Stated Complaint: BIBA FOR LOW BP Source: patient, EMS, friend Exam Limitations: no limitations Vital Signs & Intake/Output Vital Signs & Intake/Output Vital Signs Date Time Temp Pulse Resp B/P B/P Pulse O2 O2 Flow FiO2 Mean Ox Delivery Rate 09/29 1616 96.6 91 18 105/67 95 Room Air 09/29 1444 98.6 82 18 102/63 98 Room Air Allergies Coded Allergies: warfarin (From COUMADIN) (UNKNOWN 07/21/16) Uncoded Allergies: SILK TAPE (BLISTERS 07/21/16) Reconcile Medications Acetaminophen (Tylenol) 325 MG TABLET 1 TAB PO Q4-6 PRN PRN PAIN SCALE 1-3 ( MILD) (Reported) Acetaminophen 650 MG SUPP.RECT 1 SUPP MI Q4 HRS NEEDED PRN FEVER > 101 ( Reported) Alendronate Sodium (Fosamax) 70 MG TABLET 1 TAB PO QSAT OSTEOPOROSIS ( Reported) in the morning, at least 30 minutes before the first food, beverage, or medication of the day Atorvastatin Calcium 20 MG TABLET 1 TAB PO QPM HIGH CHOLESTROL (Reported) Calcium (Elemental-Fr Calcarb) (Calcium Carbonate) 600 MG CALCIUM (1,500 MG) TABLET 1,200 MG PO QHS SUPPLEMENET (Reported) Cholecalciferol (Vitamin D3) (Vitamin D) 1,000 UNIT TABLET 1 TAB PO DAILY SUPPLEMENT (Reported) Dextran 70/Hypromellose (Artificial Tears) 1 EACH DROPERETTE 1 GTT OU DAILY DRY EYE (Reported) Divalproex Sodium (Depakote Sprinkle) 125 MG CAP.SPRINK 4 CAP PO 8AM SEIZURES (Reported) Divalproex Sodium (Depakote) 125 MG TABLET.DR 750 MG PO 2000 SEIZURES ( Reported) Famotidine (Pepcid) 20 MG TABLET 1 TAB PO DAILY HEARTBURN (Reported) Fludrocortisone Acetate 0.1 MG TABLET 0.5 TAB PO DAILY ADRENAL INSUFFICIENCY FROM 04/01 WITH PO HYDROCORTISONE Furosemide 20 MG TABLET 1 TAB PO QAM EDEMA (Reported) Hydrocortisone 5 MG TABLET 3 TAB PO QAM HYPOALDOSTRONISM (Reported) Hydrocortisone 5 MG TABLET 1 TAB PO QPM HYPOALDOSTRONISM (Reported) Levofloxacin (Levaquin) 750 MG TABLET 1 TAB PO DAILY CAP, UTI Montelukast Sodium (Singulair) 10 MG TABLET 1 TAB PO QPM ASTHMA (Reported) Sennosides/Docusate Sodium (Senna S Tablet) 8.6 MG-50 MG TABLET 2 TAB PO QPM STOOL (Reported) Triage Nurses Notes Reviewed? yes Onset: Abrupt Duration: day(s): (1), constant, continues in ED Timing: single episode today Injury Environment: home Severity: mild, moderate No Modifying Factors: none LMP (ages 10-50): post menopausal : No Patient currently breastfeeds: No HPI: 50-year-old female with past medical history of Down syndrome brought in by ambulance from [facility] for evaluation of hypotension. Caregiver reports that during routine vitals earlier today patient was hypotensive to 80 systolic. When EMS arrived they took her blood pressure with a smaller cuff the repeat pressure was 120 systolic over 70s. Caregiver states that patient's mental status is at baseline. He has been eating and drinking normally. She is not complaining of any concerns. Patient had a 101 fever today per caregiver. She is not given any meds for the fever. Caregiver also reports that patient had been coughing for the last few days. You're also states patient has been having several episodes of diarrhea today. No blood in the diarrhea and no sick contacts no recent travel no recent antibiotic use. No shortness of breath, chest pain, lower extremity edema, back pain, abdominal pain, nausea, vomiting, or any other associated symptoms. (SANTIAGO BAE PA-C) Past History Travel History Traveled to [place] past 21 day No Medical History Any Pertinent Medical History? 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 No (SANTIAGO BAE PA-C) Review of Systems Review of Systems Constitutional: Reports: no symptoms. EENTM: Reports: no symptoms. Respiratory: Reports: see HPI, cough. Cardiovascular: Reports: no symptoms. GI: Reports: see HPI, diarrhea. Genitourinary: Reports: no symptoms. Musculoskeletal: Reports: no symptoms. Skin: Reports: no symptoms. Neurological/Psychological: Reports: no symptoms. Hematologic/Endocrine: Reports: no symptoms. Immunologic/Allergic: Reports: no symptoms. All Other Systems: Reviewed and Negative (CATALINO OBRIEN,SANTIAGO) Physical Exam Physical Exam General Appearance: well developed/nourished, no apparent distress, alert, awake , comfortable Head: atraumatic, normal appearance Eyes: Bilateral: normal appearance, PERRL, EOMI. Ears, Nose, Throat: normal pharynx, normal ENT inspection, hearing grossly normal Neck: normal inspection, supple, full range of motion Respiratory: chest non-tender, no respiratory distress, crackles (LEFT LOWER) Cardiovascular: regular rate/rhythm, normal peripheral pulses Peripheral Pulses: 2+ radial (R), 2+ radial (L) Gastrointestinal: normal bowel sounds, soft, non-tender, no organomegaly Back: normal inspection, normal range of motion, no vertebral tenderness Extremities: normal inspection, normal capillary refill, normal range of motion, no edema Neurologic/Psych: no motor/sensory deficits, awake, alert, oriented x 3, normal gait, normal mood/affect, court advocate II-XII nml as tested Reflexes: 2+: knee (R), knee (L). Skin: intact, normal color, warm/dry Lymphatic: no anterior cervical low Core Measures ACS in differential dx? No CVA/TIA Diagnosis: No Severe Sepsis Present: No Septic Shock Present: No (CATALINO OBRIEN,SANTIAGO) Progress Differential Diagnoses I considered the following diagnoses in my evaluation of the patient: [ Dehydration, orthostatic hypotension, pneumonia, UTI, sepsis, acute bronchitis, acute coronary syndrome, CHF, C. difficile, viral gastroenteritis] Plan of Care: Orders Procedure Date/time Status LACTIC ACID 09/29 1745 Active Straight Cath 09/29 1609 Active Add-on Test (ER Only) 09/29 1559 Active CULTURE,URINE 09/29 1545 Active BLOOD CULTURE 09/29 1519 Active MAGNESIUM 09/29 1512 Complete MISTAKE 09/29 1511 Active D-DIMER 09/29 1456 Complete URINALYSIS 09/29 1445 Complete TROPONIN LEVEL 09/29 1445 Complete LACTIC ACID 09/29 1445 Complete COMPREHENSIVE METABOLIC PANEL 09/29 144 Complete CBC WITHOUT DIFFERENTIAL 09/29 144 Complete B-TYPE NATRIURETIC PEP (BNP) 09/29 144 Complete EKG 09/29 144 Active Laboratory Tests 09/29/16 1545: Urine Color YEL, Urine Clarity HAZY H, Urine pH 7.0, Ur Specific [place] 1.015, Urine Protein 30 H, Urine Ketones TRACE H, Urine Nitrite POS H, Urine Bilirubin NEG, Urine Urobilinogen 0.2, Ur Leukocyte Esterase LARGE H, Ur Microscopic SEDIMENT EXAMINED, Urine RBC 5-10 H, Urine WBC PACKD H, Ur Epithelial Cells FEW, Urine Bacteria MANY H, Urine Hemoglobin MOD H, Urine Glucose NEG 09/29/16 151: Anion Gap 8, Estimated GFR 47 L, BUN/Creatinine Ratio 13.3, Glucose 91, Lactic Acid 1.5, Calcium 8.7, Magnesium 2.1, Total Bilirubin 0.5, AST 36, ALT 24, Alkaline Phosphatase 54, Troponin I 0.01, Tge-D-Yxwymlqmjih Pept 1530 H, Total Protein 6.1 L, Albumin 2.8 L, Globulin 3.3, Albumin/Globulin Ratio 0.8 L, D- Dimer High Sensitivty 215, CBC w Diff NO MAN DIFF REQ, RBC 3.54 L, MCV 100.2 H , MCH 33.3 H, RDW 20.4 H, MPV 8.9, Gran % 72.0, Lymphocytes % 17.5 L, Monocytes % 10.2 H, Eosinophils % 0.1, Basophils % 0.2, Absolute Granulocytes 7.2 H, Absolute Lymphocytes 1.8, Absolute Monocytes 1.0 H, Absolute Eosinophils 0, Absolute Basophils 0, PUBS MCHC 33.3 09/29/16 1456: Magnesium Cancelled Microbiology 09/29 1627 STOOL: Clostridium difficile Toxin A & B - CAN Cancelled: Cancelled via OE: Error 09/29 1545 URINE ROUT: Urine Culture - RECD 09/29 1535 BLOOD: Blood Culture - RECD 09/29 1512 BLOOD: Blood Culture - RECD Patient seen and evaluated. She is currently he wanted stable and afebrile. CRAckles also to the left lower lobe may represent pneumonia. Patient will have chest x-ray basic blood work orthostatics and EKG. She'll get a liter of normal saline for now. 3:20 PM: Chest x-ray shows a left lower lobe infiltrate which may be pneumonia. Patient will be treated for community required pneumonia Zithromax and ceftriaxone. Blood cultures obtained. Remaining blood work is still pending. 406pm: Urine is also showing signs of infection. Culture added. Lactate is within normal as patient doesn't have a white count her vital signs have remained stable. Patient will be ambulated to see if she desaturates. She will also be given potassium by mouth. 4:24 PM: Patient only admits a small shuffles at baseline. So we are unable to ambulate or completely. Patient was given fluids and a dose of IV antibiotics here. We also gave her potassium here. Patient's mental status is at baseline. She is afebrile, oh white count, no lactate. sHe is normotensive. We will check a stool culture to evaluate her diarrhea. She will be discharged home with a prescription for Levaquin. Advised taking a probiotic with this. Advised increasing fluids resting Tylenol as needed for pain or fever. Monitor symptoms. Follow up with the primary care doctor this coming week. Case discussed with Dr. Salcedo he agrees with the plan. (CATALINO OBRIEN,SANTIAGO) Diagnostic Imaging: Viewed by Me: Radiology Read. Discussed w/RAD: Radiology Read. Radiology Impression: PATIENT: MADDIE JANSEN PRESENT AGE: 50 PATIENT ACCOUNT NO: [id number] : 63 LOCATION: [facility] ORDERING PHYSICIAN: SANTIAGO BAE PA-C SERVICE DATE: 09/29/16 EXAM TYPE: RAD - XRY- PORTABLE CHEST XRAY EXAMINATION: XR PORTABLE CHEST CLINICAL INFORMATION: Cough, fever. COMPARISON: Multiple prior chest x-rays. Most recent exam 03/28/2016. TECHNIQUE: Portable frontal view of the chest was obtained. FINDINGS: There is vague airspace opacities and reticular opacities at the mid lower left lung suggesting infiltrate. The right lung is clear. There is no significant central pulmonary vascular congestion. There is no pleural effusion. Heart size is normal. The cardiac and the mediastinal contours are normal. IMPRESSION: Infiltrate at left lung base. DICTATED BY: MAXIMILIAN OREILLY MD DATE/TIME DICTATED:1508 SHELL MACHINE OPERATOR:ANAHI DATE/TIME TRANSCRIBED:09/29/161508 CONFIDENTIAL, DO NOT COPY WITHOUT APPROPRIATE AUTHORIZATION. <Electronically signed in Other Vendor System> SIGNED BY: MAXIMILIAN OREILLY MD 09/29/16 2502 Initial ED EKG: normal sinus rhythm, no ST T wave changes (CATALINO OBRIEN,SANTIAGO) Departure Departure Disposition: HOME OR SELF CARE Condition: Stable Clinical Impression Primary Impression: Pneumonia Qualifiers: Pneumonia type: due to unspecified organism Laterality: left Lung location: lower lobe of lung Qualified Code: J18.1 - Lobar pneumonia, unspecified organism Secondary Impressions: UTI (urinary tract infection) Qualifiers: Urinary tract infection type: site unspecified Hematuria presence: without hematuria Qualified Code: N39.0 - Urinary tract infection, site not specified Referrals: HARMAN DONATO MD Additional Instructions: Take Levaquin as directed for the full course. Take a probiotic to replace healthy bacteria. Complete stool culture as soon as possible. Rest and drink plenty of fluids. Use Tylenol as needed for pain or fever. Make a follow-up appointment with your primary care doctor as soon as possible. Return to the emergency department with any concerns. Please go over all results of today's visit with your primary care doctor. Contact your primary care doctor to let them know you were here in the emergency room. There may be nonspecific findings which may not be related to your visit today here in the emergency room but may require further evaluation and chronic monitoring by your primary care doctor. If you had a laceration today the chance of foreign body always remains. You should follow-up with your primary care doctor for recheck in 3-5 days for a wound check. If you had an x-ray done there is a chance that a fracture could have been missed on initial read and you should follow-up with your primary care doctor for repeat x-rays if symptoms persist. If your blood pressure was elevated here in the emergency room please have rechecked by her primary care doctor within the next 48 hours by your primary care doctor. If you were prescribed a narcotic here in the emergency room or any type of controlled substances you're not allowed to drive while taking this medication or operate any type of heavy machinery. Narcotics can make you feel lightheaded dizziness nausea and can cause constipation. You may need to pickle cutter a stool softener. Thank you for choosing [facility] emergency room. Please return to the emergency room immediately if you have any other concerns worsening of symptoms. Departure Forms: Customer Survey General Discharge Information Prescriptions: Current Visit Scripts Levofloxacin (Levaquin) 1 TAB PO DAILY #10 TAB (SANTIAGO BAE PA-C) PA/LAB MANAGER Co-Sign Statement Statement: ED Attending supervision documentation- [] I saw and evaluated the patient. I have also reviewed all the pertinent lab results and diagnostic results. I agree with the findings and the plan of care as documented in the PA's/LAB MANAGER's documentation. [X] I have reviewed the ED Record and agree with the PA's/LAB MANAGER's documentation. [] Additions or exceptions (if any) to the PAs/LAB MANAGER's note and plan are summarized below: [] (JA MITCHELL,HANSA Rodriguez) Critical Care Note Critical Care Note Critical Care Time: non-applicable (SANTIAGO BAE PA-C) ED Attending Observation Initial Observation Note: I have seen and personally examined MADDIE JANSEN on 09/29/16 at 1500. I agree with the current emergency department documentation. The disposition (admission or discharge) is uncertain at this time, she needs a period of observation for the following reason(s): The ED Nurse caring for this patient has been personally informed as to what the patient is being observed for. (SANTIAGO BAE PA-C)
--- NOTE | 2016-09-29 15:15 | RADIOLOGY REPORT ---
EXAMINATION: XR PORTABLE CHEST CLINICAL INFORMATION: Cough, fever. COMPARISON: Multiple prior chest x-rays. Most recent exam 03/28/2016. TECHNIQUE: Portable frontal view of the chest was obtained. FINDINGS: There is vague airspace opacities and reticular opacities at the mid lower left lung suggesting infiltrate. The right lung is clear. There is no significant central pulmonary vascular congestion. There is no pleural effusion. Heart size is normal. The cardiac and the mediastinal contours are normal. IMPRESSION: Infiltrate at left lung base.
[2016-09-29 15:24] LABS: ABSOLUTE BASOPHIL COUNT 0 /CUMM (0.0-0.2); ABSOLUTE EOSINOPHIL COUNT 0 /CUMM (0.0-0.7); ABSOLUTE GRANULOCYTE CT 7.2 /CUMM (1.4-6.5); ABSOLUTE LYMPH COUNT 1.8 /CUMM (1.2-3.4); BASOPHIL % 0.2 % (0.0-2.0); EOSINOPHIL % 0.1 % (0-5); HEMATOCRIT 35.5 % (37-47); MEAN CORPUSCULAR HGB 33.3 PG (27.0-31.0); MEAN CORPUSCULAR HGB CONC 33.3 G/DL (33.0-37.0); MEAN CORPUSCULAR VOLUME 100.2 FL (81.0-99.0); MEAN PLATELET VOLUME 8.9 FL (7.4-10.4); PLATELET COUNT 137 /CUMM (130-400); RBC DISTRIBUTION WIDTH 20.4 % (11.5-14.5); RED BLOOD CELL CT 3.54 /CUMM (4.20-5.40); WHITE BLOOD CELL COUNT 10.1 /CUMM (4.8-10.8)
[2016-09-29] MEDS ORDERED: LEVAQUIN750 M1 PO (17:36)
[2016-09-29 18:53] VITALS: BP 110/72
== END 2016-09-29 18:54 ==
LOC: ERH 14:42
PROVIDERS: Physician Assistant Medical
DX: J18.9 Pneumonia, unspecified organism (principal); N39.0 Urinary tract infection, site not specified
CPT/HCPCS: 81001; 87040; 87045; 87086; 93005; 93010; 96365; 96375; J0696